=== PATIENT | male | born 1990 | race African-American/Black ===

== ENCOUNTER 2018-10-08 01:12 | Emergency (ER) | payer SELFPAY ==
[2018-10-08 02:45] LABS: Absolute Lymphocytes (CBC) 2.2 K/uL (0.7-4.9); Basophils % 0.7 % (0-1.3); Eosinophils % 5.3 % (0-4.4); Hematocrit 47.6 % (39.6-49.0); Lymphocytes % 41.4 % (15.3-44.8); MPV 12.5 fL (7.6-11.3); Monocytes % 5.7 % (3.3-12.3); RBC Red Blood Cell Count 5.27 M/uL (4.33-5.43)
[2018-10-08 02:55] LABS: BUN Blood Urea Nitrogen 15 mg/dL (7-18); Bicarbonate 26 mmol/L (21-32); Glucose Level 79 mg/dL (74-106); Potassium 3.8 mmol/L (3.5-5.1); Sodium Level 142 mmol/L (136-145); Troponin (Emerg Dept Use Only) < 0.02 ng/mL (0.0-0.045)
[2018-10-08] MEDS ORDERED: KETOROLAC 30 MG/ML INJ ONE (03:26)
[2018-10-08 03:50] LABS: Blood Morphology Comment NOT SEEN (NOT SEEN); Platelet Estimate DECR; Platelets, Giant FEW; Urine White Blood Cell Casts OK
--- NOTE | 2018-10-08 04:44 | ER ---
Nurse's Notes [facility] Name: Ta Alarcon Age: 28 yrs Sex: Male : 1990 Arrival Date: 10/08/2018 Time: 01:14 Bed 6 Private MD: Diagnosis: Chest pain, unspecified Presentation: 10/08 01:22 Presenting complaint: Patient states: that he is having midsternal chest pain that fc radiates to back on and off for the past week. When it comes it lasts a couple of hrs. Nothing specific sets off chest pain. When chest pain comes he also has shortness of breath but no nausea or vomiting. Transition of care: patient was not received from another setting of care. Onset of symptoms was September 30, 2018. Risk Assessment: Do you want to hurt yourself or someone else? Patient reports no desire to harm self or others. Initial Sepsis Screen: Does the patient meet any 2 criteria? No. Patient's initial sepsis screen is negative. Does the patient have a suspected source of infection? No. Patient's initial sepsis screen is negative. Care prior to arrival: None. 01:22 Method Of Arrival: Ambulatory 01:22 Acuity: GABINO 3 fc Historical: - Allergies: 01:34 No Known Allergies; fc - Home Meds: 01:34 None [Active]; fc - PMHx: 01:34 None; fc - PSHx: 01:34 None; fc - Immunization history:: Last tetanus immunization: up to date. - Social history:: Smoking status: Patient uses tobacco products, denies chronic smoking, but will smoke occasionally, Patient/guardian denies using alcohol, street drugs. - Ebola Screening: : Patient negative for fever greater than or equal to 101.5 degrees Fahrenheit, and additional compatible Ebola Virus Disease symptoms Patient denies exposure to infectious person Patient denies travel to an Ebola-affected area in the 21 days before illness onset. Screenin:22 Abuse screen: Denies threats or abuse. Nutritional screening: No deficits noted. fc Tuberculosis screening: No symptoms or risk factors identified. Fall Risk None identified. Assessment: 02:00 General: Appears in no apparent distress. Behavior is calm, cooperative, appropriate ea for age. Pain: Complains of pain in chest Pain does not radiate. Pain began 2-3 days ago. Neuro: Level of Consciousness is awake, alert, obeys commands, Oriented to person, place, time, situation. Cardiovascular: Reports fatigue, shortness of breath, Patient's skin is warm and dry. Respiratory: Airway is patent Respiratory effort is even, unlabored, Respiratory pattern is regular, symmetrical. Derm: Skin is pink, warm \T\ dry. Musculoskeletal: Circulation, motion, and sensation intact. 03:19 Reassessment: Patient and/or family updated on plan of care and expected duration. Pain ea level reassessed. Patient is alert, oriented x 3, equal unlabored respirations, skin warm/dry/pink. 04:52 Reassessment: Patient and/or family updated on plan of care and expected duration. Pain ea level reassessed. Patient is alert, oriented x 3, equal unlabored respirations, skin warm/dry/pink. Discharge instruction given to patient, verbalized the understanding of instruction. Pt left ED ambulatory with mother, pt tolerating well. Vital Signs: 01:22 BP 128 / 80; Pulse 50; Resp 18; Temp 97.6(O); Pulse Ox 99% on R/A; Weight 77.11 kg (R); Height 6 ft. 1 in. (185.42 cm) (R); Pain 6/10; 02:30 BP 134 / 72; Pulse 63; Resp 18; Pulse Ox 99% ; ea 03:15 BP 136 / 83; Pulse 52; Resp 18; Pulse Ox 99% ; ea 04:30 BP 130 / 80; Pulse 55; Resp 19; Temp 97.8; Pulse Ox 99% on R/A; Pain 0/10; ea 01:22 Body Mass Index 22.43 (77.11 kg, 185.42 cm) ED Course: 01:14 Patient arrived in ED. ds1 01:22 Arm band placed on Patient placed in an exam room, on a stretcher. fc 01:22 Patient has correct armband on for positive identification. Bed in low position. Call light in reach. gambling monitor on. Pulse ox on. NIBP on. 01:22 No provider procedures requiring assistance completed. fc 01:23 Chuck Yanes MD is Attending Physician. gs 01:32 Triage completed. fc 01:48 Chelo Peña RN is Primary Nurse. ea 02:00 Patient maintains SpO2 saturation greater than 95% on room air. ea 02:08 X-ray completed. Portable x-ray completed in exam room. Patient tolerated procedure kw well. 02:08 XRAY Chest (1 view) In Process Unspecified. EDMS 02:30 Inserted saline lock: 22 gauge in right antecubital area, using aseptic technique. ea 04:44 Salazar Lemus MD is Referral Physician. gs 04:52 IV discontinued, intact, bleeding controlled, No redness/swelling at site. Pressure ea dressing applied. Administered Medications: 03:13 Drug: TORadol - Ketorolac 15 mg Route: IVP; Site: right antecubital; ea 04:00 Follow up: Response: No adverse reaction; Pain is decreased ea Outcome: 04:44 Discharge ordered by MD. gs 04:53 Discharged to home ambulatory, with family. ea 04:53 Condition: improved 04:53 Discharge instructions given to patient, Instructed on discharge instructions, follow up and referral plans. Demonstrated understanding of instructions, follow-up care. 04:55 Patient left the ED. ea Signatures: Dispatcher [employer] [facility] Betty Shelton RN RN Ely Luna ds1 Nia Villalba Elena, RN RN ea Starr, Gregory, MD MD gs
--- NOTE | 2018-10-08 04:45 | EDPHYS ---
Physician Documentation [facility] Name: Ta Alarcon Age: 28 yrs Sex: Male : 1990 Arrival Date: 10/08/2018 Time: 01:14 Bed 6 Private MD: ED Physician Chuck Yanes HPI: 10/08 03:52 This 28 yrs old Black Male presents to ER via Ambulatory with complaints of Chest Pain gs - Discomfort. 03:52 The patient or guardian reports chest pain that is located primarily in the anterior gs chest wall. Associated signs and symptoms: Pertinent positives:. 03:52 The pain radiates to back. Associated signs and symptoms: Pertinent positives: gs shortness of breath, Pertinent negatives: abdominal pain, diaphoresis, dizziness, syncope. The chest pain is described as a heaviness, sharp. Duration: The patient or guardian reports a single episode, that is now resolved. Modifying factors: The symptoms are alleviated by nothing. the symptoms are aggravated by twisting torso. Severity of pain: At its worst the pain was moderate in the emergency department the pain has resolved. The patient has experienced similar episodes in the past, a few times. onset a week ago. Historical: - Allergies: 01:34 No Known Allergies; fc - Home Meds: 01:34 None [Active]; fc - PMHx: :34 None; fc - PSHx: 01:34 None; fc - Immunization history:: Last tetanus immunization: up to date. - Social history:: Smoking status: Patient uses tobacco products, denies chronic smoking, but will smoke occasionally, Patient/guardian denies using alcohol, street drugs. - Ebola Screening: : Patient negative for fever greater than or equal to 101.5 degrees Fahrenheit, and additional compatible Ebola Virus Disease symptoms Patient denies exposure to infectious person Patient denies travel to an Ebola-affected area in the 21 days before illness onset. ROS: 03:52 All other systems are negative. gs Exam: 03:52 Head/Face: Normocephalic, atraumatic. Eyes: Pupils equal round and reactive to light, gs extra-ocular motions intact. Lids and lashes normal. Conjunctiva and sclera are non-icteric and not injected. Cornea within normal limits. Periorbital areas with no swelling, redness, or edema. ENT: Nares patent. No nasal discharge, no septal abnormalities noted. Tympanic membranes are normal and external auditory canals are clear. Oropharynx with no redness, swelling, or masses, exudates, or evidence of obstruction, uvula midline. Mucous membranes moist. Neck: Trachea midline, no thyromegaly or masses palpated, and no cervical lymphadenopathy. Supple, full range of motion without nuchal rigidity, or vertebral point tenderness. No Meningismus. Chest/axilla: Normal chest wall appearance and motion. Nontender with no deformity. No lesions are appreciated. Cardiovascular: Regular rate and rhythm with a normal S1 and S2. No gallops, murmurs, or rubs. Normal PMI, no JVD. No pulse deficits. Respiratory: Lungs have equal breath sounds bilaterally, clear to auscultation and percussion. No rales, rhonchi or wheezes noted. No increased work of breathing, no retractions or nasal flaring. Abdomen/GI: Soft, non-tender, with normal bowel sounds. No distension or tympany. No guarding or rebound. No evidence of tenderness throughout. Back: No spinal tenderness. No costovertebral tenderness. Full range of motion. Skin: Warm, dry with normal turgor. Normal color with no rashes, no lesions, and no evidence of cellulitis. MS/ Extremity: Pulses equal, no cyanosis. Neurovascular intact. Full, normal range of motion. Neuro: Awake and alert, GCS 15, oriented to person, place, time, and situation. Cranial nerves II-XII grossly intact. Motor strength 5/5 in all extremities. Sensory grossly intact. Cerebellar exam normal. Normal gait. 03:52 Constitutional: The patient appears alert, awake. 04:42 ECG was reviewed by the Attending Physician. Vital Signs: 01:22 BP 128 / 80; Pulse 50; Resp 18; Temp 97.6(O); Pulse Ox 99% on R/A; Weight 77.11 kg (R); fc Height 6 ft. 1 in. (185.42 cm) (R); Pain 6/10; 02:30 BP 134 / 72; Pulse 63; Resp 18; Pulse Ox 99% ; ea 03:15 BP 136 / 83; Pulse 52; Resp 18; Pulse Ox 99% ; ea 04:30 BP 130 / 80; Pulse 55; Resp 19; Temp 97.8; Pulse Ox 99% on R/A; Pain 0/10; ea 01:22 Body Mass Index 22.43 (77.11 kg, 185.42 cm) fc MDM: 01:56 Patient medically screened. 03:52 Differential diagnosis: abnormal EKG, acute myocardial infarction, coronary artery gs disease chest wall pain. HEART Score: History: Slightly Suspicious (0), ECG: Significant ST-deviation (2), Age: < or = 45 years (0), Risk Factors: No Risk Factors Known (0), Troponin: < or = 1 x Normal Limit (0). Data reviewed: vital signs, nurses notes, lab test result(s), EKG, radiologic studies. 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 Response to treatment: the patient's symptoms have resolved after treatment, the patient's pain is gone, the patient's condition has returned to base line. 04:44 Counseling: I had a detailed discussion with the patient and/or guardian regarding: the gs presence of at least one elevated blood pressure reading (>120/80) during this emergency department visit. Special discussion: Based on the patient's history, exam, and Dx evaluation, there is no indication for emergent intervention or inpatient Tx. It is understood by the patient/guardian that if the Sx's persist or worsen they need to return immediately for re-evaluation. I have referred the patient to see his PCP for further evaluation of high blood pressure. 10/08 01:57 Order name: Basic Metabolic Panel; Complete Time: 02:55 10/08 01:57 Order name: CBC with Diff; Complete Time: 04:23 10/08 01:57 Order name: Troponin (emerg Dept Use Only); Complete Time: 02:55 10/08 01:57 Order name: XRAY Chest (1 view) 10/08 02:50 Order name: CBC Smear Scan; Complete Time: 04:23 EDMS 10/08 01:57 Order name: EKG; Complete Time: 02:00 10/08 01:57 Order name: Cardiac monitoring; Complete Time: 02:06 10/08 01:57 Order name: EKG - Nurse/Tech; Complete Time: 02:06 10/08 01:57 Order name: IV Saline Lock; Complete Time: : 10/08 01:57 Order name: Labs collected and sent; Complete Time: : 10/08 01:57 Order name: O2 Per Protocol; Complete Time: 02:06 10/08 01:57 Order name: O2 Sat Monitoring; Complete Time: 02:06 EC:42 Rate is 46 beats/min. Rhythm is regular. ND interval is normal. QRS interval is normal. QT interval is normal. T waves are Inverted. ST Segment is depressed in leads III, aVF. Clinical impression: NSR w/ Non-specific ST/T Changes. Interpreted by me. Administered Medications: 03:13 Drug: TORadol - Ketorolac 15 mg Route: IVP; Site: right antecubital; ea 04:00 Follow up: Response: No adverse reaction; Pain is decreased ea Disposition: 10/08/18 04:44 Discharged to Home. Impression: Chest pain, unspecified. - Condition is Stable. - Discharge Instructions: Nonspecific Chest Pain, Managing Your Hypertension. - Medication Reconciliation Form, Thank You Letter, Antibiotic Education, Prescription Opioid Use form. - Follow up: Salazar Lemus MD; When: 1 - 2 days; Reason: Re-evaluation by your physician. Signatures: Dispatcher [employer] Betty Hicks, RN Chelo Guerrero RN RN ea Starr, Gregory, MD MD Corrections: (The following items were deleted from the chart) 04:55 04:44 10/08/2018 04:44 Discharged to Home. Impression: Chest pain, unspecified. ea Condition is Stable. Forms are Medication Reconciliation Form, Thank You Letter, Antibiotic Education, Prescription Opioid Use. Follow up: Salazar Lemus; When: 1 - 2 days; Reason: Re-evaluation by your physician.
[2018-10-08 05:02] VITALS: O2SAT 99
[2018-10-08 05:06] VITALS: BP 130/80; TEMP 97.8
--- NOTE | 2018-10-08 07:54 | EKG ---
Test Date: 2018-10-08 Test Time: 01:42:17 [employer]visor [employer]: [id number] MEASUREMENT RESULTS: Intervals: Rate: 46 VA: 184 QRSD: 98 QT: 440 QTc: 385 [place]: P: 69 VA: 184 QRS: 223 T: -12 INTERPRETIVE STATEMENTS: Marked sinus bradycardia Right superior axis deviation Possible Right ventricular hypertrophy Abnormal QRS-T angle, consider primary T wave abnormality Abnormal ECG No previous ECG available for comparison Electronically Signed On 10-08-18 07:53:40 CDT by Salazar Lemus
--- NOTE | 2018-10-08 08:12 | RAD REPORT ---
EXAM DESCRIPTION: RAD - Chest Single View - 10/08/2018 2:10 am CLINICAL HISTORY: CHEST PAIN Chest pain. COMPARISON: CHEST PA AND LAT 2 VIEW dated 08/11/2009 FINDINGS: Portable technique limits examination quality. The lungs are grossly clear. The heart is normal in size. No displaced fractures. IMPRESSION: No acute intrathoracic process suspected.
== END 2018-10-08 04:55 | disposition home or self-care (01) ==
LOC: ER 01:12
DX: R07.9 Chest pain, unspecified (principal); R06.02 Shortness of breath; Z72.0 Tobacco use
CPT/HCPCS: 36415; 71045; 80048; 84484; 85025; 93005; 96374; 99285

== ENCOUNTER 2019-04-21 15:24 | Emergency (ER) | payer SELFPAY ==
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
[2019-04-21 17:03] VITALS: BP 122/78; TEMP 97.6; O2SAT 99
== END 2019-04-21 16:28 | disposition home or self-care (01) ==
LOC: ER 15:24
DX: M62.830 Muscle spasm of back (principal); V49.40XA Driver injured in collision with unspecified motor vehicles in traffic accident, initial encounter
CPT/HCPCS: 99282

== ENCOUNTER 2019-11-06 02:01 | Emergency (ER) | payer SELFPAY ==
--- NOTE | 2019-11-06 02:59 | EDPHYS ---
Physician Documentation [facility] Name: Ta Alarcon Age: 29 yrs Sex: Male : 1990 Arrival Date: 11/06/2019 Time: 02:04 Bed 18 Private MD: ED Physician Hussein Rangel HPI: 11/05 02:49 This 29 yrs old Black Male presents to ER via Ambulatory with complaints of Shortness abhilash Of Breath. 02:49 The patient has shortness of breath at rest, with light activity. Onset: The abhilash symptoms/episode began/occurred 5 day(s) ago. Duration: The symptoms are intermittent, with episodes lasting minutes at a time. The patient's shortness of breath has no apparent modifying factors. Associated signs and symptoms: The patient has no apparent associated signs or symptoms. Severity of symptoms: At their worst the symptoms were mild in the emergency department the symptoms are unchanged. The patient has not experienced similar symptoms in the past. Historical: - Allergies: 02:20 No Known Allergies; mt2 - PMHx: 02:20 Anxiety; mt2 - PSHx: 02:20 None; mt2 - Immunization history:: Adult Immunizations up to date. - Social history:: Smoking status: Patient reports the use of cigarette tobacco products, denies chronic smoking, but will smoke occasionally, Patient/guardian denies using alcohol, street drugs. - Family history:: not pertinent. ROS: 02:49 Constitutional: Negative for fever, chills, and weight loss, Eyes: Negative for injury, abhilash pain, redness, and discharge, ENT: Negative for injury, pain, and discharge, Neck: Negative for injury, pain, and swelling, Cardiovascular: Negative for chest pain, palpitations, and edema, Abdomen/GI: Negative for abdominal pain, nausea, vomiting, diarrhea, and constipation, Back: Negative for injury and pain, : Negative for injury, bleeding, discharge, and swelling, MS/Extremity: Negative for injury and deformity, Skin: Negative for injury, rash, and discoloration, Neuro: Negative for headache, weakness, numbness, tingling, and seizure, Psych: Negative for depression, anxiety, suicide ideation, homicidal ideation, and hallucinations, Allergy/Immunology: Negative for hives, rash, and allergies, Endocrine: Negative for neck swelling, polydipsia, polyuria, polyphagia, and marked weight changes, Hematologic/Lymphatic: Negative for swollen nodes, abnormal bleeding, and unusual bruising. 02:49 Respiratory: Positive for Exam: 02:49 Constitutional: This is a well developed, well nourished patient who is awake, alert, abhilash and in no acute distress. Head/Face: Normocephalic, atraumatic. Eyes: Pupils equal round and reactive to light, extra-ocular motions intact. Lids and lashes normal. Conjunctiva and sclera are non-icteric and not injected. Cornea within normal limits. Periorbital areas with no swelling, redness, or edema. ENT: Nares patent. No nasal discharge, no septal abnormalities noted. Tympanic membranes are normal and external auditory canals are clear. Oropharynx with no redness, swelling, or masses, exudates, or evidence of obstruction, uvula midline. Mucous membranes moist. Neck: Trachea midline, no thyromegaly or masses palpated, and no cervical lymphadenopathy. Supple, full range of motion without nuchal rigidity, or vertebral point tenderness. No Meningismus. Chest/axilla: Normal chest wall appearance and motion. Nontender with no deformity. No lesions are appreciated. Cardiovascular: Regular rate and rhythm with a normal S1 and S2. No gallops, murmurs, or rubs. Normal PMI, no JVD. No pulse deficits. Respiratory: Lungs have equal breath sounds bilaterally, clear to auscultation and percussion. No rales, rhonchi or wheezes noted. No increased work of breathing, no retractions or nasal flaring. Abdomen/GI: Soft, non-tender, with normal bowel sounds. No distension or tympany. No guarding or rebound. No evidence of tenderness throughout. Back: No spinal tenderness. No costovertebral tenderness. Full range of motion. Skin: Warm, dry with normal turgor. Normal color with no rashes, no lesions, and no evidence of cellulitis. MS/ Extremity: Pulses equal, no cyanosis. Neurovascular intact. Full, normal range of motion. Neuro: Awake and alert, GCS 15, oriented to person, place, time, and situation. Cranial nerves II-XII grossly intact. Motor strength 5/5 in all extremities. Sensory grossly intact. Cerebellar exam normal. Normal gait. Psych: Awake, alert, with orientation to person, place and time. Behavior, mood, and affect are within normal limits. 02:49 Musculoskeletal/extremity: Extremities: all appear grossly normal, with no appreciated pain with palpation, ROM: full active range of motion, full passive range of motion, Pulses: Sensation intact. Compartment Syndrome exam of affected extremity: is normal. Weight bearing: able to fully bear weight, DVT Exam: No signs of deep vein thrombosis. no pain, no swelling, no tenderness, negative Homans' sign noted on exam, no appreciated bluish discoloration, no erythema, no increased warmth. Vital Signs: 02:15 BP 141 / 73; Pulse 77; Resp 16; Temp 98.0(O); Pulse Ox 100% on R/A; Weight 79.38 kg; mt2 Pain 0/10; 02:22 BP 141 / 73; Pulse 77; Resp 16; Temp 98.0(O); Pulse Ox 100% on R/A; Weight 79.38 kg; mt2 Pain 0/10; 03:10 BP 125 / 68; Pulse 69; Resp 16; Pulse Ox 100% on R/A; Pain 0/10; mt2 [place] Coma Score: 03:10 Eye Response: spontaneous(4). Verbal Response: oriented(5). Motor Response: obeys mt2 commands(6). Total: 15. MDM: 02:19 Patient medically screened. abhilash 02:55 Differential diagnosis: Anxiety Reaction CHF exacerbation, pulmonary edema, reactive abhilash airway disease. Antibiotic administration: Not indicated. The patient's Wells Deep Vein Thrombosis Score was calculated as follows: Total Score: 0-2 Pts- Low Risk. The patient's pulmonary embolism risk score was calculated as follows: Total Score: 0-2 points. This patient was found to be at low risk for a pulmonary embolism by using the Well's assessment criteria. Immunization status:. Data reviewed: vital signs, nurses notes, radiologic studies, plain films. Data interpreted: vision care associate: rate is 77 beats/min, rhythm is regular, Pulse oximetry: on room air. 11/05 02:39 Order name: Chest Single View XRAY fc Administered Medications: No medications were administered Disposition: 11/06/19 02:58 Discharged to Home. Impression: Cough, Bronchitis and pneumonitis due to chemicals, gases, fumes and vapors, Vomiting. - Condition is Stable. - Discharge Instructions: Acute Bronchitis, Adult, Cool Mist Vaporizer, Acute Bronchitis, [id number], Cough, Adult. - Prescriptions for Zofran 4 mg Oral Tablet - take 1 tablet by ORAL route every 12 hours As needed; 14 tablet. Medrol (Adolph) 4 mg Oral Tablets, Dose Pack - take 1 tablet by ORAL route as directed - follow package instructions; 1 packet. Bromfed DM 2- 30-10 mg/5 mL Oral syrup - take 10 milliliter by ORAL route every 6 hours; 150 milliliter. - Medication Reconciliation Form, Thank You Letter, Antibiotic Education, Prescription Opioid Use form. - Follow up: Private Physician; When: 2 - 3 days; Reason: Recheck today's complaints, Continuance of care, Re-evaluation by your physician. Follow up: Johan Tsai MD; When: 2 - 3 days; Reason: Recheck today's complaints, Re-evaluation by your physician. - Problem is new. - Symptoms have improved. Signatures: Dispatcher [employer] EDHussein Velez MD MD cha Toscano, Marlene RN RN mt2 Corrections: (The following items were deleted from the chart) 02:59 02:58 11/06/2019 02:58 Discharged to Home. Impression: Cough; Bronchitis and abhilash pneumonitis due to chemicals, gases, fumes and vapors. Condition is Stable. Forms are Medication Reconciliation Form, Thank You Letter, Antibiotic Education, Prescription Opioid Use. Follow up: Private Physician; When: 2 - 3 days; Reason: Recheck today's complaints, Continuance of care, Re-evaluation by your physician. Follow up: Johan Tsai; When: 2 - 3 days; Reason: Recheck today's complaints, Re-evaluation by your physician. Problem is new. Symptoms have improved. abhilash 03:13 02:59 11/06/2019 02:58 Discharged to Home. Impression: Cough; Bronchitis and mt2 pneumonitis due to chemicals, gases, fumes and vapors; Vomiting. Condition is Stable. Discharge Instructions: Acute Bronchitis, Adult, Cool Mist Vaporizer, Acute Bronchitis, [id number], Cough, Adult. Prescriptions for Zofran 4 mg Oral Tablet - take 1 tablet by ORAL route every 12 hours As needed; 14 tablet, Medrol (Adolph) 4 mg Oral Tablets, Dose Pack - take 1 tablet by ORAL route as directed - follow package instructions; 1 packet. and Forms are Medication Reconciliation Form, Thank You Letter, Antibiotic Education, Prescription Opioid Use. Follow up: Private Physician; When: 2 - 3 days; Reason: Recheck today's complaints, Continuance of care, Re-evaluation by your physician. Follow up: Johan Tsai; When: 2 - 3 days; Reason: Recheck today's complaints, Re-evaluation by your physician. Problem is new. Symptoms have improved. abhilash
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
[2019-11-06 03:51] VITALS: BP 141/73; TEMP 98; O2SAT 100
--- NOTE | 2019-11-06 09:47 | RAD REPORT ---
EXAM DESCRIPTION: RAD - Chest Single View - 11/06/2019 3:02 am CLINICAL HISTORY: SOB COMPARISON: Portable September 2018 TECHNIQUE: AP portable chest image was obtained 11/06/2019 3:02 am . FINDINGS: Lungs are clear. Heart and vasculature are normal. No measurable pleural effusion and no p neumothorax. No acute bony abnormality seen. No acute aortic findings suspected. IMPRESSION: No acute cardiopulmonary process. No significant change from comparison.
== END 2019-11-06 03:13 | disposition home or self-care (01) ==
LOC: ER 02:01
DX: J68.0 Bronchitis and pneumonitis due to chemicals, gases, fumes and vapors (principal); R11.10 Vomiting, unspecified; Z72.0 Tobacco use
CPT/HCPCS: 71045; 99283

== ENCOUNTER 2020-08-30 09:41 | Emergency (ER) | payer SELFPAY ==
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
--- NOTE | 2020-08-30 11:30 | ER ---
Nurse's Notes [facility] Name: Ta Alarcon Age: 30 yrs Sex: Male : 1990 Arrival Date: 08/30/2020 Time: 09:46 Bed 18 Private MD: Diagnosis: Pain in right knee Presentation: 08/30 10:09 Chief complaint: Patient states: I was at work, and walked down a wooden staircase and tw2 the step broke in half. I twisted right knee. Coronavirus screen: At this time, the client does not indicate any symptoms associated with coronavirus-19. Ebola Screen: Patient denies travel to an Ebola-affected area in the 21 days before illness onset. Initial Sepsis Screen: Does the patient meet any 2 criteria? No. Patient's initial sepsis screen is negative. Does the patient have a suspected source of infection? No. Patient's initial sepsis screen is negative. Risk Assessment: Do you want to hurt yourself or someone else? Patient reports no desire to harm self or others. Note provider TRAVIS Toure in triage room at this time. Onset of symptoms was August 30, 2020. 10:09 Method Of Arrival: Ambulatory tw2 10:09 Acuity: GABINO 4 tw2 Triage Assessment: 10:11 General: Appears in no apparent distress. slender, well groomed, Behavior is calm, tw2 cooperative, appropriate for age. Pain: Complains of pain in RIGHT knee. Musculoskeletal: Range of motion: intact in all extremities. Injury Description: twisted knee. Historical: - Allergies: 10:12 No Known Allergies; tw2 - Home Meds: 10:12 None [Active]; tw2 - PMHx: 10:12 Anxiety; tw2 - PSHx: 10:12 None; tw2 - Immunization history:: Adult Immunizations. - Social history:: Smoking status: . Screenin:41 Abuse screen: Denies threats or abuse. Denies injuries from another. Nutritional tr6 screening: No deficits noted. Tuberculosis screening: No symptoms or risk factors identified. Fall Risk Fall in past 12 months (25 points). Assessment: 10:40 General: Appears in no apparent distress. Behavior is calm, cooperative, appropriate tr6 for age. Pain: Complains of pain in right knee. Neuro: No deficits noted. Cardiovascular: No deficits noted. Respiratory: No deficits noted. GI: No deficits noted. : No deficits noted. EENT: No deficits noted. Derm: No deficits noted. Musculoskeletal: Reports pain in right knee. 10:56 Reassessment: bedside xray. tr6 11:36 Reassessment: lesli wrap applied to pts right knee. tr6 Vital Signs: 10:09 Pulse 65; Resp 17; Temp 97.9; Pulse Ox 100% on R/A; tw2 10:12 BP 111 / 74; Pulse 65; Weight 80.74 kg (R); Height 6 ft. 1 in. (185.42 cm); tw2 10:42 BP 136 / 72; Pulse 73; Resp 18; Pulse Ox 100% ; tr6 11:40 BP 159 / 77; Pulse 51; Resp 18; Pulse Ox 100% ; tr6 10:12 Body Mass Index 23.48 (80.74 kg, 185.42 cm) tw2 ED Course: 09:46 Patient arrived in ED. am2 10:11 Triage completed. tw2 10:11 Michell Blancas FNP-C [facility] kb 10:11 Brenden Holley MD is Attending Physician. kb 10:11 Arm band placed on. tw2 10:41 Patient has correct armband on for positive identification. Fall risk band placed. Bed tr6 in low position. Call light in reach. Side rails up X 1. 10:41 No provider procedures requiring assistance completed. tr6 11:08 Knee Right 3 View XRAY In Process Unspecified. EDMS Administered Medications: No medications were administered Outcome: 11:29 Discharge ordered by . kb 11:41 Discharged to home ambulatory. tr6 11:41 Condition: good 11:41 Discharge instructions given to patient, Instructed on discharge instructions, follow up and referral plans. medication usage, Demonstrated understanding of instructions, follow-up care, medications, Prescriptions given X 1. 11:42 Patient left the ED. tr6 Signatures: Dispatcher [employer] EDMS Michell Blancas FNP-C FNP-Ckb Wise, Tara RN RN tw2 Blessing Cabrera am2 Alma Pizarro RN RN tr6
--- NOTE | 2020-08-30 11:30 | EDPHYS ---
Physician Documentation [facility] Name: Ta Alarcon Age: 30 yrs Sex: Male : 1990 Arrival Date: 08/30/2020 Time: 09:46 Bed 18 Private MD: ED Physician Brenden Holley HPI: 08/30 10:15 This 30 yrs old Black Male presents to ER via Ambulatory with complaints of Knee kb Injury, Knee Pain. 10:15 The patient presents with pain, tenderness. The complaints affect the right knee. kb Context: The problem was sustained at work, resulted from twisting of the extremity, the patient can fully bear weight, the patient is able to ambulate. Onset: The symptoms/episode began/occurred just prior to arrival. Modifying factors: The symptoms are alleviated by nothing. the symptoms are aggravated by movement. Associated signs and symptoms: The patient has no apparent associated signs or symptoms. Treatment prior to arrival includes: no previous treatment. Severity of symptoms: At their worst the symptoms were mild, moderate, in the emergency department the symptoms are unchanged. The patient has not experienced similar symptoms in the past. The patient has not recently seen a physician. Pt reports he was walking down wooden steps when one broke causing him to twist his knee. c/o pain to right knee only. No other injuries/pain reported. Historical: - Allergies: 10:12 No Known Allergies; tw2 - Home Meds: 10:12 None [Active]; tw2 - PMHx: 10:12 Anxiety; tw2 - PSHx: 10:12 None; tw2 - Immunization history:: Adult Immunizations. - Social history:: Smoking status: . ROS: 10:13 Constitutional: Negative for fever, chills, and weight loss, Back: Negative for injury kb and pain, Skin: Negative for injury, rash, and discoloration. 10:13 MS/extremity: Positive for pain, tenderness, of the right knee. 10:13 Neuro: Negative for numbness, tingling. Exam: 10:13 Constitutional: This is a well developed, well nourished patient who is awake, alert, kb and in no acute distress. Head/Face: Normocephalic, atraumatic. ENT: Moist Mucous membranes Respiratory: Respirations even and unlabored. No increased work of breathing, no retractions or nasal flaring. Skin: Warm, dry with normal turgor. Normal color. Neuro: Awake and alert, GCS 15, oriented to person, place, time, and situation. Moves all extremities. Normal gait. 10:13 Musculoskeletal/extremity: Extremities: grossly normal except: noted in the right knee: pain, tenderness, ROM: intact in all extremities, Circulation is intact in all extremities. Sensation intact. Weight bearing: able to fully bear weight. Vital Signs: 10:09 Pulse 65; Resp 17; Temp 97.9; Pulse Ox 100% on R/A; tw2 10:12 BP 111 / 74; Pulse 65; Weight 80.74 kg (R); Height 6 ft. 1 in. (185.42 cm); tw2 10:42 BP 136 / 72; Pulse 73; Resp 18; Pulse Ox 100% ; tr6 11:40 BP 159 / 77; Pulse 51; Resp 18; Pulse Ox 100% ; tr6 10:12 Body Mass Index 23.48 (80.74 kg, 185.42 cm) tw2 MDM: 10:11 Patient medically screened. kb 10:13 Data reviewed: vital signs, nurses notes. Data interpreted: Pulse oximetry: on room air kb is 100 %. Interpretation: normal. 11:28 Counseling: I had a detailed discussion with the patient and/or guardian regarding: the kb historical points, exam findings, and any diagnostic results supporting the discharge/admit diagnosis, radiology results, the need for outpatient follow up, a orthopedic surgeon, to return to the emergency department if symptoms worsen or persist or if there are any questions or concerns that arise at home. 08/30 10:12 Order name: Knee Right 3 View XRAY; Complete Time: 11:28 kb 08/30 11:28 Order name: Gilbert Wrap; Complete Time: 11:32 kb Administered Medications: No medications were administered Disposition: 17:10 Co-signature as Attending Physician, Brenden Holley MD. rn Disposition: 08/30/20 11:29 Discharged to Home. Impression: Pain in right knee. - Condition is Stable. - Discharge Instructions: Musculoskeletal Pain, Knee Pain, [id number]. - Prescriptions for Ibuprofen 800 mg Oral Tablet - take 1 tablet by ORAL route every 8 hours As needed take with food; 30 tablet. - Medication Reconciliation Form, Thank You Letter, Antibiotic Education, Prescription Opioid Use form. - Work release form (08/30/20 11:48). bd - Follow up: Emergency Department; When: As needed; Reason: Worsening of condition. Follow up: Private Physician; When: 2 - 3 days; Reason: Recheck today's complaints, Continuance of care, Re-evaluation by your physician. Signatures: Dispatcher [employer] EDMS Michell Blancas, ELECTRICAL AND INSTRUMENT MECHANIC-C ELECTRICAL AND INSTRUMENT MECHANIC-Ckb Brenden Holley MD MD rn Wise, Tara, RN RN 2 Alma Pizarro RN RN tr6 Vannessa Rome Corrections: (The following items were deleted from the chart) 11:42 11:29 08/30/2020 11:29 Discharged to Home. Impression: Pain in right knee. Condition is tr6 Stable. Forms are Medication Reconciliation Form, Thank You Letter, Antibiotic Education, Prescription Opioid Use. Follow up: Emergency Department; When: As needed; Reason: Worsening of condition. Follow up: Private Physician; When: 2 - 3 days; Reason: Recheck today's complaints, Continuance of care, Re-evaluation by your physician. kb
[2020-08-30 11:50] VITALS: TEMP 97.9; O2SAT 100
[2020-08-30 11:55] VITALS: BP 159/77
== END 2020-08-30 11:42 | disposition home or self-care (01) ==
LOC: ER 09:41
DX: M25.561 Pain in right knee (principal)
CPT/HCPCS: 99283

== ENCOUNTER 2020-11-24 10:22 | Emergency (ER) | payer BC ==
--- NOTE | 2020-11-24 13:46 | EDPHYS ---
Physician Documentation [facility] Name: Ta Alarcon Age: 30 yrs Sex: Male : 1990 Arrival Date: 11/24/2020 Time: 10:28 Bed DIS2 Private MD: ED Physician Joe Granados HPI: 11/24 16:19 This 30 yrs old Black Male presents to ER via Ambulatory with complaints of Covid Test, kdr Headache. 16:19 The patient stated that he had recently been exposed to Covid and that today he woke kdr with a very slight headache. The patient is completely nontoxic appearing and has not been unstable in any way. Onset: The symptoms/episode began/occurred suddenly, this morning. Severity of symptoms: At their worst the symptoms were very mild in the emergency department the symptoms are unchanged. The patient has not experienced similar symptoms in the past. The patient has not recently seen a physician. Historical: - Allergies: 11:03 No Known Allergies; ca1 - Home Meds: 11:03 None [Active]; ca1 - PMHx: 11:03 Anxiety; ca1 - PSHx: 11:03 None; ca1 - Immunization history:: Client reports having NOT received the Covid vaccine. - Social history:: Smoking status: Patient denies any tobacco usage or history of. ROS: 16:19 Constitutional: Negative for fever, chills, and weight loss, Eyes: Negative for injury, kdr pain, redness, and discharge, ENT: Negative for injury, pain, and discharge, Neck: Negative for injury, pain, and swelling, Cardiovascular: Negative for chest pain, palpitations, and edema, Respiratory: Negative for shortness of breath, cough, wheezing, and pleuritic chest pain, Abdomen/GI: Negative for abdominal pain, nausea, vomiting, diarrhea, and constipation, Back: Negative for injury and pain, : Negative for injury, bleeding, discharge, and swelling, MS/Extremity: Negative for injury and deformity, Skin: Negative for injury, rash, and discoloration, Psych: Negative for depression, anxiety, suicide ideation, homicidal ideation, and hallucinations, Allergy/Immunology: Negative for hives, rash, and allergies, Endocrine: Negative for neck swelling, polydipsia, polyuria, polyphagia, and marked weight changes, Hematologic/Lymphatic: Negative for swollen nodes, abnormal bleeding, and unusual bruising. 16:19 Neuro: Positive for headache, Very minor headache. Exam: 16:19 Constitutional: This is a well developed, well nourished patient who is awake, alert, kdr and in no acute distress. Head/Face: Normocephalic, atraumatic. Eyes: Pupils equal round and reactive to light, extra-ocular motions intact. Lids and lashes normal. Conjunctiva and sclera are non-icteric and not injected. Cornea within normal limits. Periorbital areas with no swelling, redness, or edema. Neck: Trachea midline, no thyromegaly or masses palpated, and no cervical lymphadenopathy. Supple, full range of motion without nuchal rigidity, or vertebral point tenderness. No Meningismus. Chest/axilla: Normal chest wall appearance and motion. Nontender with no deformity. No lesions are appreciated. Cardiovascular: Regular rate and rhythm with a normal S1 and S2. No gallops, murmurs, or rubs. Normal PMI, no JVD. No pulse deficits. Respiratory: Lungs have equal breath sounds bilaterally, clear to auscultation and percussion. No rales, rhonchi or wheezes noted. No increased work of breathing, no retractions or nasal flaring. Abdomen/GI: Soft, non-tender, with normal bowel sounds. No distension or tympany. No guarding or rebound. No evidence of tenderness throughout. Back: No spinal tenderness. No costovertebral tenderness. Full range of motion. Skin: Warm, dry with normal turgor. Normal color with no rashes, no lesions, and no evidence of cellulitis. MS/ Extremity: Pulses equal, no cyanosis. Neurovascular intact. Full, normal range of motion. Neuro: Awake and alert, GCS 15, oriented to person, place, time, and situation. Cranial nerves II-XII grossly intact. Motor strength 5/5 in all extremities. Sensory grossly intact. Cerebellar exam normal. Normal gait. Psych: Awake, alert, with orientation to person, place and time. Behavior, mood, and affect are within normal limits. Vital Signs: 11:01 Pulse 62; Resp 18 S; Temp 98.2; Pulse Ox 100% on R/A; Weight 81.65 kg (R); Height 6 ft. ca1 1 in. (185.42 cm); Pain 0/10; 11:03 BP 113 / 61; ca1 11:01 Body Mass Index 23.75 (81.65 kg, 185.42 cm) ca1 MDM: 13:45 Patient medically screened. kdr 16:19 Data reviewed: vital signs, nurses notes, lab test result(s), radiologic studies. kdr Counseling: I had a detailed discussion with the patient and/or guardian regarding: the historical points, exam findings, and any diagnostic results supporting the discharge/admit diagnosis, lab results, radiology results, the need for outpatient follow up. 11/24 11:00 Order name: Flu; Complete Time: 13:40 ca1 11/24 12:32 Order name: SARS-COV-2 RT PCR; Complete Time: 13:40 EDMS Administered Medications: No medications were administered Disposition Summary: 11/24/20 13:45 Discharge Ordered Location: Home kdr Problem: new kdr Symptoms: are unchanged kdr Condition: Stable kdr Diagnosis - Viral infection, unspecified kdr - Headache kdr Followup: kdr - With: Private Physician - When: 2 - 3 days - Reason: If symptoms return, Further diagnostic work-up, Recheck today's complaints, Continuance of care, Re-evaluation by your physician Discharge Instructions: - Discharge Summary Sheet kdr - General Headache Without Cause kdr - General Headache Without Cause, [id number] kdr - Viral Illness, Adult kdr Forms: - Medication Reconciliation Form kdr - Thank You Letter kdr Signatures: Dispatcher [employer] Joe Waterman MD MD kdr Diana Laguna RN RN ca1 Corrections: (The following items were deleted from the chart) 11:23 11:01 CORONAVIRUS+MR.LAB.FRACISCOZ ordered. EDTX EDTX
--- NOTE | 2020-11-24 13:46 | ER ---
Nurse's Notes [facility] Name: Ta Al[facility] Age: 30 yrs Sex: Male : 1990 Arrival Date: 11/24/2020 Time: 10:28 Bed DIS2 Private MD: Diagnosis: Viral infection, unspecified;Headache Presentation: 11/24 11:01 Chief complaint: Patient states: Headache today. Exposure to Covid. Coronavirus screen: ca1 Client denies travel out of the [place] in the last 14 days. headache, Client presents with at least one sign or symptom that may indicate coronavirus-19. Standard/surgical mask placed on the client. Provider contacted for isolation considerations. Ebola Screen: Patient negative for fever greater than or equal to 101.5 degrees Fahrenheit, and additional compatible Ebola Virus Disease symptoms Patient denies exposure to infectious person. Patient denies travel to an Ebola-affected area in the 21 days before illness onset. No symptoms or risks identified at this time. Initial Sepsis Screen: Does the patient meet any 2 criteria? No. Patient's initial sepsis screen is negative. Does the patient have a suspected source of infection? No. Patient's initial sepsis screen is negative. Risk Assessment: Do you want to hurt yourself or someone else? Patient reports no desire to harm self or others. Onset of symptoms was November 24, 2020. 11:01 Method Of Arrival: Ambulatory ca1 11:01 Acuity: GABINO 4 ca1 Historical: - Allergies: 11:03 No Known Allergies; ca1 - Home Meds: 11:03 None [Active]; ca1 - PMHx: 11:03 Anxiety; ca1 - PSHx: 11:03 None; ca1 - Immunization history:: Client reports having NOT received the Covid vaccine. - Social history:: Smoking status: Patient denies any tobacco usage or history of. Screenin:09 Abuse screen: Denies threats or abuse. Denies injuries from another. Nutritional ss screening: No deficits noted. Tuberculosis screening: Never had TB. Fall Risk None identified. Assessment: 12:54 General: Appears in no apparent distress. comfortable, Behavior is calm, cooperative. ss Pain: Denies pain. Neuro: Level of Consciousness is awake, alert, obeys commands, Oriented to person, place, time, situation, Blocking Machine Operator are equal bilaterally. Neuro: Reports headache. Cardiovascular: Capillary refill < 3 seconds is brisk in bilateral fingers Patient's skin is warm and dry. Respiratory: Respiratory effort is even, unlabored, Respiratory pattern is regular, symmetrical. GI: No signs and/or symptoms were reported involving the gastrointestinal system. EENT: Nares are clear. Derm: Skin is intact, is healthy with good turgor, Skin is dry, Skin is pink, warm \T\ dry. normal. Musculoskeletal: Circulation, motion, and sensation intact. Range of motion: intact in all extremities, Swelling absent. 13:09 Reassessment: Patient appears in no apparent distress at this time. Patient and/or ss family updated on plan of care and expected duration. Pain level reassessed. Vital Signs: 11:01 Pulse 62; Resp 18 S; Temp 98.2; Pulse Ox 100% on R/A; Weight 81.65 kg (R); Height 6 ft. ca1 1 in. (185.42 cm); Pain 0/10; 11:03 BP 113 / 61; ca1 11:01 Body Mass Index 23.75 (81.65 kg, 185.42 cm) ca1 ED Course: 10:28 Patient arrived in ED. mr 11:02 Triage completed. ca1 11:03 Arm band placed on right wrist. ca1 12:54 No provider procedures requiring assistance completed. 13:09 Lora Orellana, RN is Primary Nurse. ss 13:09 Patient has correct armband on for positive identification. Call light in reach. ss 13:37 Joe Granados MD is Attending Physician. kdr 14:00 Patient did not have IV access during this emergency room visit. ss Administered Medications: No medications were administered Outcome: 13:45 Discharge ordered by . kdr 14:00 Discharged to home ambulatory. ss 14:00 Condition: good 14:00 Discharge instructions given to patient, Instructed on discharge instructions, follow up and referral plans. Demonstrated understanding of instructions, follow-up care. 14:00 Patient left the ED. Signatures: Joe Granados MD MD kdr Rivera, Mary mr Lora Orellana, GALLO RN Diana Laguna RN RN ca1
[2020-11-24 14:06] VITALS: TEMP 98.2; O2SAT 100
[2020-11-24 14:07] VITALS: BP 113/61
== END 2020-11-24 14:00 | disposition home or self-care (01) ==
LOC: ER 10:22
DX: B34.9 Viral infection, unspecified (principal); Z20.822 Contact with and (suspected) exposure to COVID-19
CPT/HCPCS: 87804 ×2; 99281; U0003

== ENCOUNTER 2022-02-14 00:27 | Emergency (ER) | payer BC, SELFPAY ==
--- OUTSIDE RECORDS SUMMARY | 2022-02-14 00:31 | XMS REPORT | Continuity of Care Document ---
:1990 Author Organization [facility] t Address [address] [place] [address] Care Team Providers Name Role Phone PCP, PATIENT DOES NOT HAVE A Primary Care Physician Unavaila KAY Fontana Attending Clinician Unavailable Kay Zavala Attending Clinician Doctor Unassigned, [place] Attending Clinician Unavailable Lab, Adc Fam Pob I Attending Clinician Unavailable Zac John MD Attending Clinician ZAC JOHN Attending Clinician Unavailable KAY AREVALO Admitting Clinician Unavailable Problems Condition Condition Condition Status Onset Resolution Last Treating Co mments Source Name Details Category Date Date Treatment Clinician Date No known No known Disease Unive rs active active ity of problems problems [facility] Allergies, Adverse Reactions, Alerts Allergy Allergy Status Severity Reaction(s) Onset Inactive Treating Comm ents Source Name Type Date Date Clinician NO KNOWN Drug Active Univers ALLERGIE Class ity of S [facility] Social History Social Habit Start Date Stop Date Quantity Comments Source Exposure to 2022-01-03 2022-01-13 Not sure [facility] SARS-CoV-2 (event) 00:00:00 00:01:00 Medica l Branch Sex Assigned At [birth year] [facility] [place] 00:00:00 00:00:00 Medical Branch Smoking Status Start Date Stop Date Source Tobacco smoking consumption [facility] Medical unknown Branch Medications Ordered Filled Start Stop Current Ordering Indication Dosage Frequency Signature Comments Components Source Medication Medication Date Date Medication? Clinician (SIG) Name Name methocarbam 2021- No 1000mg 1,000 mg, Univers oL 01-13 Oral, ity of (ROBAXIN) 05:15: 05:10 ONCE, [place] tablet [place] :00 dose, On Medical 1,000 mg Sat Branch 01/13/22 at 0015, MICHAEL ketorolac 30mg 30 mg, Unive rs (TORADOL) 01-13 Slow IV ity of injection 05:15: 05:09 Push, [place] 30 mg 00 :00 ONCE, 1 Medical dose, On Branch 01/13/22 at 0015, MICHAEL ibuprofen Yes [id number] 800mg Take 1 Univers 800 mg 9-24 tablet by ity of tablet 00:00: mouth [place] 00 every 8 Medical (eight) Branch hours as needed for Pain (scale 4-6). methocarbam Yes [id number] 750mg Take 1 Univers oL 750 mg 9-24 tablet by ity o f tablet 00:00: mouth 4 [place] 00 (four) Medical times Branch daily as needed for Pain (scale 7-10). Vital Signs Vital Name Observation Time Observation Value Comments Source Systolic blood 2022-01-13 06:00:00 127 mm[Hg] [facility] Diastolic blood 2022-01-13 06:00:00 82 mm[facility]Hg[facility] Heart rate 2022-01-13 06:00:00 60 /min [facility] Respiratory rate 2022-01-13 06:00:00 17 /min [facility] Oxygen saturation in 2022-01-13 06:00:00 98 /min [facility] Arterial blood by [facility] Pulse oximetry Branch Body height 2022-01-13 05:04:00 182.9 cm [facility] Body weight 2022-01-13 05:04:00 83.915 kg [facility] BMI 2022-01-13 05:04:00 25.09 kg/m2 [facility] Procedures Procedure Date / Time Performed Performing Clinician Sourc e EKG-12 LEAD 2022-01-13 06:39:36 Kay Arevalo [facility] XR CHEST 2 VW 2022-01-13 05:31:19 Kay Arevalo [facility] TROPONIN I 2022-01-13 05:08:00 Kay Arevalo [facility] COMP. METABOLIC PANEL 2022-01-13 05:08:00 Kay Arevalo [facility] ([id number]) [facility] CBC WITH DIFF 2022-01-13 05:08:00 Kay Arevalo [facility] URINALYSIS 2022-01-13 05:08:00 Kay Arevalo [facility] N-TERMINAL PRO-BNP 2022-01-13 05:08:00 Kay Arevalo [facility] NOTICE OF PRIVACY 2022-01-13 04:54:29 Doctor Unassigned, No [facility] PRACTICES Name [facility] CONSENT/REFUSAL FOR 2022-01-13 04:52:45 Doctor Unassigned, No [facility] DIAGNOSIS AND Name [facility] TREATMENT Encounters Start End Encounter Admission Attending Care Care Encounter Source Date/Time Date/Time Type Type Clinicians Facility Department ID 2022-01-12 2022-01-13 [id number] Univers 23:56:00 01:42:00 [facility] 2022-01-12 2022-01-13 Emergency [facility] [id number] Univers 23:56:00 01:42:00 Kay GARCIA [id number] i ty of [place] 4[place]2.7.2.686 [place] [facility] [phone] [facility] 084 Branch 2022-01-12 2022-01-12 Orders Doctor EARL [id number] Univers 00:00:00 00:00:00 Only UnassignedALEXANDRE [id number] ity of [place] [facility] 4.2.7.2.686 Erich as [phone] [facility] 009 Branch 2020-12-01 2020-12-01 Laboratory Lab, Adc Fam Pob I [facility] 1.2. [id number] Univers 15:44:08 16:04:08 Only Zac John 350.1.13.10 ity of [place] 4.2.7.2.686 Erich as Professio [id number] De dical [facility] [address] 2020-12-01 2020-12-01 Outpatient Joel [facility] [id number] Univers 15:20:00 15:20:00 ZAC ity of [facility] 2020-12-01 2020-12-01 Letter Doctor EARL [id number] Univers 00:00:00 00:00:00 (Out) Unassigned, ALEXANDRE [id number] ity of [place] [facility] 4.2.7.2.686 Erich as [id number] [address] 2020-12-01 2020-12-01 Letter Doctor EARL [id number] Univers 00:00:00 00:00:00 (Out) Unassigned, ALEXANDRE 350.1.13.10 ity of [place] [facility] 4.2.7.2.686 Erich as [id number] [address] Results Test Description Test Time Test Comments Results Result Comments Source CBC WITH DIFF 2022-01-13 06:16:19 Test Item Value Reference Range Interpretation Comme nts WBC (test code = 6690-2) See_Comment [A utomated message] The system which ge nerated this result transmit jennifer reference range: 4.20 - 1 0.70 10*3/?L. The reference r susannah was not used to interpr et this result as normal/abnor mal. RBC (test code = 789-8) See_Comment [Au tomated message] The system which ge nerated this result transmit jennifer reference range: 4.26 - 5 .52 10*6/?L. The reference r susannah was not used to interpr et this result as normal/abnor mal. HGB (test code = 718-7) 14.1 g/dL 12.2-16.4 HCT (test code = 4544-3) 39.8 % 38.4-49.3 MCV (test code = 787-2) 85.8 fL 81.7-95.6 MCH (test code = 785-6) 30.4 pg 26.1-32.7 MCHC (test code = 786-4) 35.4 g/dL 31.2-35 H RDW-SD (test code = 41104-4) 39.5 fL 38.5-51.6 RDW-CV (test code = 788-0) 12.6 % 12.1-15.4 PLT (test code = 777-3) See_Comment L [Au tomated message] The system which ge nerated this result transmit jennifer reference range: 150 - 32 8 10*3/?L. The reference range was not used to interpret th is result as normal/abnormal . MPV (test code = 19909-6) 13.5 fL 9.8-13 H NRBC/100 WBC (test code = See_Comment [ Automated message] The 4200130731) system which ge nerated this result transmit jennifer reference range: 0.0 - 10 .0 /100 WBCs. The reference r susannah was not used to interpr et this result as normal/abnor mal. NRBC x10^3 (test code = See_Comment [Au tomated message] The 9461943255) system which [employer] nerated this result transmit jennifer reference range: 10*3/?L. The reference range was not u sed to interpret this result as normal/abnormal . GRAN MAT (NEUT) % (test code 46.1 % = 770-8) IMM GRAN % (test code = 0.20 % 2472191862) LYMPH % (test code = 736-9) 35.2 % MONO % (test code = 5905-5) 9.5 % EOS % (test code = 713-8) 8.3 % BASO % (test code = 706-2) 0.7 % GRAN MAT x10^3(ANC) (test 1.99 10*3/uL 1.99-6.95 code = 4644728087) IMM GRAN x10^3 (test code = 0-0.06 4814049145) LYMPH x10^3 (test code = 1.52 10*3/uL 1.09-3.23 731-0) MONO x10^3 (test code = 0.41 10*3/uL 0.36-1.02 742-7) EOS x10^3 (test code = 0.36 10*3/uL 0.06-0.53 711-2) BASO x10^3 (test code = 0.03 10*3/uL 0.01-0.09 704-7) PLT ESTIMATE (test code = Decreased Normal A 9317-9) GIANT PLATELETS (test code = Present See_Comment A [Automated message] The 5908-9) system which ge nerated this result transmit jennifer reference range: (none). The reference range was not u sed to interpret this result as normal/abnormal . Lab Interpretation (test Abnormal code = 12139-1) [facility] [id number] 05:48:55 Test Item Value Reference Interpretation Comments Range TROPONIN I (test See_Comment [Automated code = 9850554889) message] The system which generated this result transmitted reference range : <=0.034. The reference range was not used to interpret this result as normal/abnormal . EALR (test code = Reference (Normal) EARL) Range (defined by the 99th percentile reference limit): <= 0.034 ng/mL Note: Cardiac troponin begins to rise 3-4 hours after the onset of ischemia. Repeat in 4-6 hours if the sample was drawn within 3-4 hours of the onset of the symptom and found normal. Diagnosis of myocardial injury is made with acute changes in cTn concentrations with at least one serial sample above the 99th percentile upper reference limit (URL), taken together with the patient's clinical presentation. Biotin has been reported to cause a negative bias, interpret results relative to patient's use of biotin. Lab Interpretation Normal (test code = 04419-1) [facility] [id number] 05:45:35 Test Item Value Reference Range Interpretation Comments NT-proBNP (test code 17 pg/mL See_Comment [Autom ated = [id number]) message] The system which generated this result transmitted reference range : <=125. The reference range was not used to interpret this result as normal/abnormal . EARL (test code = EARL) Biotin has been reported to cause a negative bias, interpret results relative to patient's use of biotin. Lab Interpretation Normal (test code = 63294-4) [facility] ([id number])2022-01-13 05:37:16 Test Item Value Reference Range Interpretation Comments NA (test code = 136 mmol/L 135-145 8282745105) K (test code = 5.0 mmol/L 3.5-5 6079854015) CL (test code = 104 mmol/L 98-108 9755105057) CO2 TOTAL (test code = 23 mmol/L 23-31 6407463864) AGAP (test code = 2-16 5607982103) BUN (test code = 21 mg/dL 7-23 6294380781) GLUCOSE (test code = 94 mg/dL 70-110 7632950596) CREATININE (test code = 1.31 mg/dL 0.6-1.25 H 9892455044) TOTAL BILI (test code = 0.6 mg/dL 0.1-1.3 7541411926) CALCIUM (test code = 9.1 mg/dL 8.6-10.6 5694170040) T PROTEIN (test code = 7.1 g/dL 6.3-8.2 3849985963) ALBUMIN (test code = 4.5 g/dL 3.5-5 1355030325) ALK PHOS (test code = 45 U/L 34-122 1802003249) ALTv (test code = 26 U/L 5-50 1742-6) AST(SGOT) (test code = 38 U/L 13-40 2117654549) eGFR (test code = mL/min/1.73m2 5687573534) EARL (test code = EARL) Association of Glomerular Filtration Rate (GFR) and Staging of Kidney Disease* + --+ --+ ------+| GFR (mL/min/1.73 m2) ?| With Kidney Damage ?| ?Without Kidney Damage+ --------+ --------+ +| ?>90 ?| ?Stage one ?| ? Normal ?+ ---+ ---+ -------+| ?60-89 ?| ?Stage two ?| ? Decreased GFR ? + --+ --+ ------+| ?30-59 ?| ?Stage three ?| ? Stage three ? + --+ --+ ------+| ?15-29 ?| ?Stage four ? | ? Stage four ?+ ---+ ---+ -------+| ?<15 (or dialysis) ? ?| ?Stage five ? | ? Stage five ?+ ---+ ---+ -------+ *Each stage assumes the associated GFR level has been in effect for at least three months. ?Stages 1 to 5, with or without kidney disease, indicate chronic kidney disease. Notes: Determination of stages one and two (with eGFR >59mL/min/1.73 m2) requires estimation of kidney damage for at least three months as defined by structural or functional abnormalities of the kidney, manifested by either:Pathological abnormalities or Markers of kidney damage (including abnormalities in the composition of the blood or urine or abnormalities in imaging tests). Lab Interpretation Abnormal (test code = 41424-9) [facility]"
[2022-02-14] MEDS ORDERED: KETOROLAC 30 MG/ML INJ ONE (01:00)
[2022-02-14] MEDS ORDERED: NA CHLORIDE 0.9% 1,000 ML ONE (01:00)
[2022-02-14 01:29] LABS: Absolute Lymphocytes (CBC) 1.4 K/uL (0.7-4.9); Lymphocytes % 32.6 % (15.3-44.8); MCV 88.5 fL (80-100); MPV 11.7 fL (7.6-11.3); RBC Red Blood Cell Count 4.75 M/uL (4.33-5.43)
[2022-02-14 01:36] LABS: Protime INR 1.05
[2022-02-14 01:44] LABS: ALT/SGPT 33 U/L (12-78); AST/SGOT 21 U/L (15-37); Albumin 3.8 g/dL (3.4-5.0); Alkaline Phosphatase 58 U/L (45-117); BUN Blood Urea Nitrogen 18 mg/dL (7-18); Bicarbonate 28 mmol/L (21-32); Bilirubin Total 0.2 mg/dL (0.2-1.0); Glomerular Filtration Rate 82 ml/min (=/>90); Glucose Level 107 mg/dL (74-106); Protein, Total 7.1 g/dL (6.4-8.2); Sodium Level 137 mmol/L (136-145); Troponin High Sensitivity 7.8 pg/mL (<58.9)
[2022-02-14 01:47] LABS: Bilirubin Direct < 0.1 mg/dL (0-0.2)
[2022-02-14 01:49] LABS: Urine Blood Negative (Negative); Urine Glucose Negative (Negative); Urine Protein Negative (Negative); Urine Specific Gravity 1.015 (1.005-1.030)
[2022-02-14 02:04] LABS: Barbiturates NEGATIVE (NEGATIVE); Benzodiazepines NEGATIVE (NEGATIVE); Cocaine NEGATIVE (NEGATIVE); METHAMPHETAM NEGATIVE (NEGATIVE); Methadone NEGATIVE (NEGATIVE); Opiates NEGATIVE (NEGATIVE); Phencyclidine NEGATIVE (NEGATIVE); THC Cannibis NEGATIVE (NEGATIVE); Urine Mucus Slight /HPF (None Seen)
[2022-02-14 02:07] LABS: Blood Morphology Comment NOTED (NOT SEEN)
[2022-02-14 02:08] LABS: Platelet Estimate DECR; White Blood Cell Scan OK (OK)
--- NOTE | 2022-02-14 02:15 | EDPHYS ---
Physician Documentation [facility] Name: Ta Alarcon Age: 31 yrs Sex: Male : 1990 Arrival Date: 02/14/2022 Time: 00:30 Bed 5 Private MD: ED Physician Hussein Rangel HPI: 02/14 01:05 This 31 yrs old Black Male presents to ER via Ambulatory with complaints of Numbness Of cp Arm, Dizziness, Anxiety, Chest Pain. 01:05 The patient or guardian reports chest pain that is located primarily in the anterior cp chest wall, left. 01:05 Associated signs and symptoms: Pertinent positives: dizziness, pain and numbness of cp left upper arm, Pertinent negatives: abdominal pain, cough, diaphoresis, headache, lower extremity pain, lower extremity swelling, shortness of breath, syncope, vomiting. The chest pain is described as aching. Duration: The patient or guardian reports a single episode, that is still ongoing. Severity of pain: in the emergency department the pain is unchanged despite home interventions. Historical: - Allergies: 00:36 No Known Allergies; as6 - Home Meds: 00:36 None [Active]; as6 - PMHx: 00:36 Anxiety; as6 - PSHx: 00:36 None; as6 - Immunization history:: Client reports having NOT received the Covid vaccine. - Social history:: Smoking status: Patient denies any tobacco usage or history of. ROS: 01:05 Constitutional: Negative for body aches, chills, fever, poor PO intake. cp 01:05 Eyes: Negative for injury, pain, redness, and discharge. cp 01:05 Neck: Negative for pain with movement, pain at rest, stiffness. 01:05 Cardiovascular: Positive for chest pain, of the left side of chest, Negative for edema, palpitations. 01:05 Respiratory: Negative for cough, shortness of breath, wheezing. 01:05 Abdomen/GI: Negative for abdominal pain, nausea, vomiting, and diarrhea. 01:05 Back: Negative for pain at rest, pain with movement. 01:05 Neuro: Positive for dizziness, numbness, Negative for altered mental status, headache, cp syncope, weakness. 01:05 All other systems are negative. Exam: 01:05 ECG was reviewed by the Attending Physician. cp 01:10 Constitutional: The patient appears in no acute distress, alert, awake, cp non-diaphoretic, non-toxic, well developed, well nourished. 01:10 Head/Face: Normocephalic, atraumatic. cp 01:10 Eyes: Periorbital structures: appear normal, Conjunctiva: normal, no exudate, no injection, Sclera: no appreciated abnormality, Lids and lashes: appear normal, bilaterally. 01:10 ENT: External ear(s): are unremarkable, Nose: is normal, Posterior pharynx: Airway: no evidence of obstruction, patent. 01:10 Neck: External neck: tenderness, is not appreciated, ROM/movement: is normal, is supple, without pain, no range of motions limitations. 01:10 Chest/axilla: Inspection: normal, Palpation: is normal, no crepitus, no tenderness. 01:10 Cardiovascular: Rate: normal, Rhythm: regular, Pulses: Pulses are 2+ in right radial artery and left radial artery. Heart sounds: murmur, not appreciated. 01:10 Respiratory: the patient does not display signs of respiratory distress, Respirations: normal, no use of accessory muscles, no retractions, labored breathing, is not present, Breath sounds: are clear throughout, no decreased breath sounds, no stridor, no wheezing. 01:10 Abdomen/GI: Inspection: abdomen appears normal, Palpation: abdomen is soft and non-tender, in all quadrants. Vital Signs: 00:32 BP 132 / 70; Pulse 54; Resp 18 S; Temp 97.9(O); Pulse Ox 99% on R/A; Weight 86.18 kg as6 (R); Height 6 ft. 0 in. (182.88 cm) (R); Pain 5/10; 02:30 BP 138 / 68; Pulse 59; Resp 14; Pulse Ox 99% on R/A; ll3 00:32 Body Mass Index 25.77 (86.18 kg, 182.88 cm) as6 MDM: 00:37 Patient medically screened. abhilash 01:00 Differential diagnosis: abnormal EKG, acute myocardial infarction, acute pericarditis, cp pericarditis, pleurisy, pneumonia, pneumothorax, pulmonary embolus. 02:15 Data reviewed: vital signs, nurses notes, lab test result(s), EKG, radiologic studies, cp plain films. 02:15 Data interpreted: media monitor: rate is 58 beats/min, rhythm is normal sinus rhythm, cp Interpretation: normal rhythm, bradycardia, Pulse oximetry: on room air is 99 %. Interpretation: normal. Plan: O2 by NC applied. Test interpretation: by ED physician or midlevel provider: ECG, plain radiologic studies. Counseling: I had a detailed discussion with the patient and/or guardian regarding: the historical points, exam findings, and any diagnostic results supporting the discharge/admit diagnosis, lab results, radiology results, the need for outpatient follow up, a family practitioner, to return to the emergency department if symptoms worsen or persist or if there are any questions or concerns that arise at home. Response to treatment: the patient's symptoms have markedly improved after treatment, and as a result, I will discharge patient. Special discussion: Based on the patient's history, exam, and Dx evaluation, there is no indication for emergent intervention or inpatient Tx. It is understood by the patient/guardian that if the Sx's persist or worsen they need to return immediately for re-evaluation. 02/14 00:57 Order name: Basic Metabolic Panel; Complete Time: 02:08 cp 02/14 02:09 Interpretation: Normal except: GLUC 107; GFR 82. cp 02/14 00:57 Order name: CBC with Diff; Complete Time: 02:08 cp 02/14 02:09 Interpretation: Normal except: PLT 58; MPV 11.7; EOSINOPHIL % 10.5. cp 02/14 00:57 Order name: D-Dimer; Complete Time: 02:08 cp 02/14 02:09 Interpretation: Reviewed. cp 02/14 00:57 Order name: LFT's; Complete Time: 02:08 cp 02/14 02:09 Interpretation: Reviewed. cp 02/14 00:57 Order name: Magnesium; Complete Time: 02:08 cp 02/14 00:57 Order name: PT-INR; Complete Time: 02:08 cp 02/14 00:57 Order name: Troponin HS; Complete Time: 02:08 cp 02/14 02:09 Interpretation: Troponin HS 7.8; Reviewed. cp 02/14 00:57 Order name: XRAY Chest (1 view) cp 02/14 00:57 Order name: UDS; Complete Time: 02:08 cp 02/14 00:57 Order name: Urine Microscopic Only; Complete Time: 02:08 cp 02/14 01:38 Order name: CBC Smear Scan; Complete Time: 02:08 EDMS 02/14 01:49 Order name: Urine Dipstick-Ancillary; Complete Time: 02:08 EDMS 02/14 00:57 Order name: EKG; Complete Time: 00:58 cp 02/14 00:57 Order name: Cardiac monitoring; Complete Time: 01:22 cp 02/14 00:57 Order name: EKG - Nurse/Tech; Complete Time: 01:08 cp 02/14 00:57 Order name: IV Saline Lock; Complete Time: : cp 02/14 00:57 Order name: Labs collected and sent; Complete Time: : cp 02/14 00:57 Order name: O2 Per Protocol; Complete Time: : cp 02/14 00:57 Order name: O2 Sat Monitoring; Complete Time: : cp 02/14 00:57 Order name: Urine Dipstick-Ancillary (obtain specimen); Complete Time: 01:48 cp EC:05 Rate is 53 beats/min. Rhythm is regular. CA interval is normal. QRS interval is normal. cp QT interval is normal. T waves are Inverted in lead III. Interpreted by me. Reviewed by me. Administered Medications: 01:21 Drug: NS 0.9% 500 ml Route: IV; Rate: bolus; Site: right antecubital; ll3 02:29 Follow up: IV Status: Completed infusion; IV Intake: 500ml ll3 01:22 Drug: Ketorolac 15 mg Route: IVP; Site: right antecubital; ll3 02:30 Follow up: Response: No adverse reaction; Marked relief of symptoms ll3 01:53 Drug: NS 0.9% 500 ml Route: IV; Rate: 125 ml/hr; Site: right antecubital; ll3 02:29 Follow up: Response: No adverse reaction; IV Status: Order to discontinue infusion; IV ll3 Intake: 50ml Disposition Summary: 02/14/22 02:15 Discharge Ordered Location: Home cp Problem: new cp Symptoms: have improved cp Condition: Stable cp Diagnosis - Chest pain, unspecified cp Followup: cp - With: Private Physician - When: 2 - 3 days - Reason: Recheck today's complaints Discharge Instructions: - Discharge Summary Sheet cp - Nonspecific Chest Pain, Adult cp - Managing Stress, Adult cp - Managing Anxiety, Adult cp Forms: - Medication Reconciliation Form cp - Thank You Letter cp - Antibiotic Education cp - Prescription Opioid Use cp Prescriptions: - Diclofenac Sodium 75 mg Oral Tablet Sustained Release - take 1 tablet by ORAL route 2 times per day; 30 tablet; Refills: 0, Product cp Selection Permitted Signatures: Dispatcher [employer] Hussein Barajas MD MD cha Page, Corey, PA PA cp Josue Padilla RN RN as6 Tyesha Giraldo RN RN ll3
--- NOTE | 2022-02-14 02:15 | ER ---
Nurse's Notes [facility] Name: Ta Alarcon Age: 31 yrs Sex: Male : 1990 Arrival Date: 02/14/2022 Time: 00:30 Bed 5 Private MD: Diagnosis: Chest pain, unspecified Presentation: 02/14 00:32 Chief complaint: Patient states: "I've been having left arm/should pain/numbness for as6 about a week. I just want to see if I can get some testing done. I don't know if its just anxiety or heart problems". Coronavirus screen: At this time, the client does not indicate any symptoms associated with coronavirus-19. Ebola Screen: No symptoms or risks identified at this time. Initial Sepsis Screen: Does the patient meet any 2 criteria? No. Patient's initial sepsis screen is negative. Does the patient have a suspected source of infection? No. Patient's initial sepsis screen is negative. Risk Assessment: Do you want to hurt yourself or someone else? Patient reports no desire to harm self or others. Onset of symptoms was February 07, 2022. 00:32 Method Of Arrival: Ambulatory as6 00:32 Acuity: GABINO 3 as6 Historical: - Allergies: 00:36 No Known Allergies; as6 - Home Meds: 00:36 None [Active]; as6 - PMHx: 00:36 Anxiety; as6 - PSHx: 00:36 None; as6 - Immunization history:: Client reports having NOT received the Covid vaccine. - Social history:: Smoking status: Patient denies any tobacco usage or history of. Screenin:28 Abuse screen: Denies threats or abuse. Denies injuries from another. Nutritional ll3 screening: No deficits noted. Tuberculosis screening: No symptoms or risk factors identified. Fall Risk None identified. Assessment: 01:22 General: Appears in no apparent distress. uncomfortable, Behavior is calm, cooperative. ll3 Pain: Denies pain. Pain: Pain began. Neuro: Level of Consciousness is awake, alert, obeys commands, Oriented to person, place, time, situation. Neuro: Reports dizziness, numbness in left arm. Cardiovascular: Reports lightheadedness, Numbness to left arm that radiates to chest Patient's skin is warm and dry. Rhythm is sinus rhythm. Respiratory: Respiratory effort is even, unlabored, Respiratory pattern is regular, symmetrical. Derm: Skin is pink, warm \\T\\ dry. Musculoskeletal: Circulation, motion, and sensation intact. Vital Signs: 00:32 BP 132 / 70; Pulse 54; Resp 18 S; Temp 97.9(O); Pulse Ox 99% on R/A; Weight 86.18 kg as6 (R); Height 6 ft. 0 in. (182.88 cm) (R); Pain 5/10; 02:30 BP 138 / 68; Pulse 59; Resp 14; Pulse Ox 99% on R/A; ll3 00:32 Body Mass Index 25.77 (86.18 kg, 182.88 cm) as6 ED Course: 00:30 Patient arrived in ED. bp1 00:35 Hussein Hawkins PA is PHCP. cp 00:35 Hussein Rangel MD is Attending Physician. cp 00:36 Triage completed. as6 00:36 Arm band placed on. as6 01:07 EKG done, by ED staff, reviewed by Hussein VELAZCO. jw7 01:22 Initial lab(s) drawn, by wy, sent to lab. Inserted saline lock: 22 gauge in right ll3 antecubital area, using aseptic technique. Blood collected. 01:27 XRAY Chest (1 view) In Process Unspecified. EDMS 02:28 Patient has correct armband on for positive identification. Bed in low position. Call ll3 light in reach. Side rails up X 1. Adult w/ patient. Client placed on continuous cardiac and pulse oximetry monitoring. NIBP monitoring applied. 02:28 No provider procedures requiring assistance completed. IV discontinued, intact, ll3 bleeding controlled, No redness/swelling at site. Pressure dressing applied. Patient maintains SpO2 saturation greater than 95% on room air. Administered Medications: 01:21 Drug: NS 0.9% 500 ml Route: IV; Rate: bolus; Site: right antecubital; ll3 02:29 Follow up: IV Status: Completed infusion; IV Intake: 500ml ll3 01:22 Drug: Ketorolac 15 mg Route: IVP; Site: right antecubital; ll3 02:30 Follow up: Response: No adverse reaction; Marked relief of symptoms ll3 01:53 Drug: NS 0.9% 500 ml Route: IV; Rate: 125 ml/hr; Site: right antecubital; ll3 02:29 Follow up: Response: No adverse reaction; IV Status: Order to discontinue infusion; IV ll3 Intake: 50ml Medication: 02:29 VIS not applicable for this client. ll3 Intake: 02:29 IV: 500ml; Total: 500ml. ll3 02:29 IV: 50ml; Total: 550ml. ll3 Outcome: 02:15 Discharge ordered by MD. stephan 02:28 Discharged to home ambulatory, with family. ll3 02:28 Condition: stable 02:28 Discharge instructions given to patient, family, Instructed on discharge instructions, follow up and referral plans. medication usage, Demonstrated understanding of instructions, follow-up care, medications, Prescriptions given X 1. 02:30 Patient left the ED. ll3 Signatures: Dispatcher [employer] EDMS Hussein Hawkins PA PA cp [place]ia[place], Brittany bp1 Slawson, Ashby, RN RN as6 Tyesha Giraldo RN RN ll3 Yoon Gresham7
[2022-02-14 02:34] VITALS: BP 132/70; TEMP 97.9; O2SAT 99
--- NOTE | 2022-02-14 11:25 | RAD REPORT ---
EXAM DESCRIPTION: RAD - Chest Single View - 02/14/2022 1:25 am CLINICAL HISTORY: 31 years, Male, left side chest pain COMPARISON: None. FINDINGS: Single view of the chest was obtained portable. No prior films are available for compariso n. The cardiomediastinal silhouette demonstrate to be unremarkable. The heart is not enlarged. The th oracic aorta is unremarkable. The pulmonary vasculature is normal distribution. Costophrenic angles a re sharp. No areas of consolidation or masses are seen. External EKG leads within the [id number] limits diagnosis. The rest of the soft tissue and bony structures demonstrate to be unremarkable. IMPRESSION: NO ACUTE CARDIOPULMONARY DISEASE SEEN. Electronically signed by: Dario Pugh MD 02/14/2022 1:58 AM CDT Due to temporary technical issues with the PACS/Fluency reporting system, reports are being signed by the in house radiologists without review as a courtesy to insure prompt reporting. The interpreting radiologist is fully responsible for the content of the report.
--- NOTE | 2022-02-14 13:07 | EKG ---
Test Date: 2022-02-14 Test Time: 01:01:16 Facing End Trimmer: BESSY MEASUREMENT RESULTS: Intervals: Rate: 53 MD: 176 QRSD: 90 QT: 400 QTc: 375 [place]: P: 68 MD: 176 QRS: 213 T: 23 INTERPRETIVE STATEMENTS: Sinus bradycardia Right superior axis deviation ST elevation, consider anterior injury or acute infarct ACUTE UT / STEMI Abnormal ECG Compared to ECG 10/08/2018 01:42:17 ST (T wave) deviation now present Myocardial infarct finding now present T-wave abnormality no longer present Electronically Signed On 02-14-22 13:06:32 CDT by Oseas Hanna
== END 2022-02-14 02:30 | disposition home or self-care (01) ==
LOC: ER 00:27
DX: R07.89 Other chest pain (principal); R42 Dizziness and giddiness
CPT/HCPCS: 36415; 71045; 80048; 80076; 80307; 81003; 81015; 83735; 84484; 85025; 85379; 85610; 93005; 96361; 96374; 99285; J7030

== ENCOUNTER 2022-06-20 19:00 | Emergency (ER) | payer SELFPAY ==
--- OUTSIDE RECORDS SUMMARY | 2022-06-20 19:04 | XMS REPORT | Continuity of Care Document ---
:1990 Author Organization [facility] t Address [address] [place] [address] [place] [id number] Care Team Providers Name Role Phone PCP, PATIENT DOES NOT HAVE A Primary Care Physician Unavaila KYA Fontana Attending Clinician Unavailable Kay Zavala Attending Clinician Doctor Unassigned, [place] Attending Clinician Unavailable Lab, Adc Fam Pob I Attending Clinician Unavailable Zac John MD Attending Clinician ZAC JOHN Attending Clinician Unavailable KAY AREVALO Admitting Clinician Unavailable Problems Condition Condition Condition Status Onset Resolution Last Treating Co mments Source Name Details Category Date Date Treatment Clinician Date No known No known Disease Unive rs active active ity of problems problems [facility] Allergies, Adverse Reactions, Alerts Allergy Allergy Status Severity Reaction(s) Onset Inactive Treating Comm ents Source Name Type Date Date Clinician NO KNOWN Drug Active Univers ALLERGIE Class ity of S [facility] Social History Social Habit Start Date Stop Date Quantity Comments Source Exposure to 2022-01-03 2022-01-13 Not sure [facility] SARS-CoV-2 (event) 00:00:00 00:01:00 Medica l Branch Sex Assigned At [birth year] [facility] [place] 00:00:00 00:00:00 Medical Branch Smoking Status Start Date Stop Date Source Tobacco smoking consumption Univ [facility] Medical unknown Branch Medications Ordered Filled Start Stop Current Ordering Indication Dosage Frequency Signature Comments Components Source Medication Medication Date Date Medication? Clinician (SIG) Name Name methocarbam 1000mg 1,000 mg, Univers oL 01-13 Oral, ity of (ROBAXIN) 05:15: 05:10 ONCE, 1 [place] tablet 00 :00 dose, On Medical 1,000 mg Sat Branch 01/13/22 at 0015, MICHAEL ketorolac 30mg 30 mg, Unive rs (TORADOL) 01-13 Slow IV ity of injection 05:15: 05:09 Push, [place] 30 mg 00 :00 ONCE, 1 Medical dose, On Branch 01/13/22 at 0015, MICHAEL ibuprofen Yes [id number] 800mg Take 1 Univers 800 mg 9-24 tablet by ity of tablet 00:00: mouth [place] 00 every 8 Medical (eight) Branch hours as needed for Pain (scale 4-6). methocarbam Yes [id number] 750mg Take 1 Univers oL 750 mg 9-24 tablet by ity o f tablet 00:00: mouth 4 [place] 00 (four) Medical times Branch daily as needed for Pain (scale 7-10). Vital Signs Vital Name Observation Time Observation Value Comments Source Systolic blood 2022-01-13 06:00:00 127 mm[Hg] [facility] Diastolic blood 2022-01-13 06:00:00 82 mm[facility]Hg[facility] Heart rate 2022-01-13 06:00:00 60 /min [facility] Respiratory rate 2022-01-13 06:00:00 17 /min [facility] saturation in 2022-01-13 06:00:00 98 /min [facility] Arterial blood by [facility] Pulse oximetry Branch Body height 2022-01-13 05:04:00 182.9 cm [facility] Body weight 2022-01-13 05:04:00 83.915 kg [facility] BMI 2022-01-13 05:04:00 25.09 kg/m2 [facility] Procedures Procedure Date / Time Performed Performing Clinician Sourc e EKG-12 LEAD 2022-01-13 06:39:36 Kay Arevalo [facility] XR CHEST 2 VW 2022-01-13 05:31:19 Kay Arevalo [facility] TROPONIN I 2022-01-13 05:08:00 Kay Arevalo [facility] COMP. METABOLIC PANEL 2022-01-13 05:08:[address] [facility] ([id number]) [facility] CBC WITH DIFF 2022-01-13 05:08:00 Kay Arevalo [facility] URINALYSIS 2022-01-13 05:08:00 Kay Arevalo [facility] N-TERMINAL PRO-BNP 2022-01-13 05:08:00 Kay Arevalo [facility] NOTICE OF PRIVACY 2022-01-13 04:54:29 Doctor Unassigned, No Univ [facility] PRACTICES Name [facility] CONSENT/REFUSAL FOR 2022-01-13 04:52:45 Doctor Unassigned, [facility] TREATMENT Encounters Start End Encounter Admission Attending Care Care Encounter Source Date/Time Date/Time Type Type Clinicians Facility Department ID 2022-01-12 2022-01-[address] E[facility] [id number] Univers 23:56:00 01:42:00 KAY thakur [facility] 2022-01-12 2022-01-13 Emergency [facility] [id number] Univers 23:56:00 01:42:00 Kay GARCIA [id number] i ty [facility] [id number] [place] [facility] [id number] [facility] 084 Branch 2022-01-12 2022-01-12 Orders Doctor EARL [id number] Univers 00:00:00 00:00:00 Only Unassigned, ALEXANDRE [id number] ity of [place] [facility] [id number] Erich as [phone] [facility] 009 Branch 2020-12-01 2020-12-01 Laboratory Lab, Adc Fam Pob I [facility] 1.2. [id number] [id number] Univers 15:44:08 16:04:08 Only Zac John [place] [id number] ity of [place] [id number] Erich as Professio [id number] Ny dical [facility] [address] 2020-12-01 2020-12-01 Outpatient R DORA, [facility] [id number] Univers 15:20:00 15:20:00 ZAC ity of [facility] 2020-12-01 2020-12-01 Letter Doctor EARL [id number] Univers 00:00:00 00:00:00 (Out) Unassigned, ALEXANDRE [id number] ity of [place] [facility] [id number] Erich as [phone] [address] 2020-12-01 2020-12-01 Letter Doctor EARL [id number] Univers 00:00:00 00:00:00 (Out) Unassigned, ALEXANDRE [id number] ity of [place] [facility] [id number] Erich as [id number] [address] Results Test Description Test Time Test [...] g/dL 31.2-35 H RDW-SD (test code = 82296-9) 39.5 fL 38.5-51.6 RDW-CV (test code = 788-0) 12.6 % 12.1-15.4 PLT (test code = 777-3) See_Comment L [Au tomated message] The system which ge nerated this result transmit jennifer reference range: 150 - 32 8 10*3/?L. The reference range was not used to interpret th is result as normal/abnormal . MPV (test code = 23916-0) 13.5 fL 9.8-13 H NRBC/100 WBC (test code = See_Comment [ Automated message] The [id number]) system which ge nerated this result transmit jennifer reference range: 0.0 - 10 .0 /100 WBCs. The reference r susannah was not used to interpr et this result as normal/abnor mal. NRBC x10^3 (test code = See_Comment [Au tomated message] The [id number]) system which ge nerated this result transmit jennifer reference range: 10*3/?L. The reference range was not u sed to interpret this result as normal/abnormal . GRAN MAT (NEUT) % (test code 46.1 % = 770-8) IMM GRAN % (test code = 0.20 % 9395551629) LYMPH % (test code = 736-9) 35.2 % MONO % (test code = 5905-5) 9.5 % EOS % (test code = 713-8) 8.3 % BASO % (test code = 706-2) 0.7 % GRAN MAT x10^3(ANC) (test 1.99 10*3/uL 1.99-6.95 code = 0208260824) IMM GRAN x10^3 (test code = 0-0.06 7647578148) LYMPH x10^3 (test code = 1.52 10*3/uL [...] . Lab Interpretation (test Abnormal code = 02544-0) [id number] 05:48:55 Test Item Value Reference Interpretation Comments Range TROPONIN I (test See_Comment [Automated code = 8604290373) message] The system which generated this result transmitted reference range : <=0.034. The reference range was not used to interpret this result as normal/abnormal . EARL (test code = Reference (Normal) EARL) Range [...] biotin. Lab Interpretation Normal (test code = 31185-3) [facility] [id number] 05:45:35 Test Item Value Reference Range Interpretation Comments NT-proBNP (test code 17 pg/mL See_Comment [Autom ated = 4027196890) message] The system which generated this result transmitted reference range : <=125. The reference range was not used to interpret this result as normal/abnormal . EARL (test code = EARL) Biotin has been reported to cause a negative bias, interpret results relative to patient's use of biotin. Lab Interpretation Normal (test code = 68969-6) [facility]. METABOLIC PANEL (63935)2022-01-13 05:37:16 Test Item Value Reference Range Interpretation Comments NA (test code = 136 mmol/L 135-145 1358634812) K (test code = 5.0 mmol/L 3.5-5 1353928696) CL (test code = 104 mmol/L 98-108 3151229572) CO2 TOTAL (test code = 23 mmol/L 23-31 5398933390) AGAP (test code = 2-16 8761671173) BUN (test code = 21 mg/dL 7-23 8146651573) GLUCOSE (test code = 94 mg/dL 70-110 7314371337) CREATININE (test code = 1.31 mg/dL 0.6-1.25 H 2163458035) TOTAL BILI (test code = 0.6 mg/dL 0.1-1.8 4154592444) CALCIUM (test code = 9.1 mg/dL 8.6-10.6 4413643087) T PROTEIN (test code = 7.1 g/dL 6.3-8.2 5333018411) ALBUMIN (test code = 4.5 g/dL 3.5-5 2751557502) ALK PHOS (test code = 45 U/L 34-122 1311500953) ALTv (test code = 26 U/L 5-50 2-6) AST(SGOT) (test code = 38 U/L 13-40 7573150811) eGFR (test code = mL/min/1.73m2 0883141917) EARL (test code = EARL) Association of [...] tests). Lab Interpretation Abnormal (test code = 48158-7) [facility]"
[2022-06-20] MEDS ORDERED: KETOROLAC 30 MG/ML INJ ONE (19:33)
[2022-06-20 19:44] LABS: Absolute Lymphocytes (CBC) 1.3 K/uL (0.7-4.9); Hematocrit 41.2 % (39.6-49.0); Lymphocytes % 24.3 % (15.3-44.8); MCV 86.5 fL (80-100); MPV 11.1 fL (7.6-11.3); RBC Red Blood Cell Count 4.76 M/uL (4.33-5.43)
[2022-06-20 20:04] LABS: Bilirubin Total 0.2 mg/dL (0.2-1.0); Potassium 3.9 mmol/L (3.5-5.1); Protein, Total 7.5 g/dL (6.4-8.2); Troponin High Sensitivity 5.9 pg/mL (<58.9)
--- NOTE | 2022-06-20 20:07 | RAD REPORT ---
EXAM DESCRIPTION: RAD - Chest Single View - 06/20/2022 8:00 pm CLINICAL HISTORY: CHEST PAIN Chest pain. COMPARISON: Chest Single View dated 02/14/2022; Chest Single View dated 11/06/2019; Chest Single View dated 10/08/2018; CHEST PA AND LAT 2 VIEW dated 08/11/2009 FINDINGS: Portable technique limits examination quality. The lungs are grossly clear. The heart is normal in size. No displaced fractures. IMPRESSION: No acute intrathoracic process suspected.
[2022-06-20 20:21] LABS: Platelet Estimate DECR; White Blood Cell Scan OK (OK)
[2022-06-20 20:22] LABS: Blood Morphology Comment NOT SEEN (NOT SEEN); Platelets, Giant PRESENT
[2022-06-20] MEDS ORDERED: CYCLOBENZAPRINE 10 MG TAB ONE (20:33)
[2022-06-20] MEDS ORDERED: NA CHLORIDE 0.9% 2,000 ML ONE (21:19)
--- NOTE | 2022-06-20 23:46 | ER ---
Nurse's Notes [facility] Name: Ta Alarcon Age: 31 yrs Sex: Male : 1990 Arrival Date: 06/20/2022 Time: 19:04 Bed 8 Private MD: Diagnosis: Chest wall pain;Elevated CPK Presentation: 06/20 19:10 Chief complaint: Patient states: left arm, arm pit and chest pain sharp and numbness to jh5 my elbow. I been to the hospital for this before 6 months ago and they said i tore a muscle it's just different. Coronavirus screen: Vaccine status:. Coronavirus screen: Vaccine status: Patient reports receiving the 2nd dose of the covid vaccine. Client denies travel out of the [place] in the last 14 days. Ebola Screen: Patient negative for fever greater than or equal to 101.5 degrees Fahrenheit, and additional compatible Ebola Virus Disease symptoms Patient denies exposure to infectious person. Patient denies travel to an Ebola-affected area in the 21 days before illness onset. Initial Sepsis Screen: Does the patient meet any 2 criteria? No. Patient's initial sepsis screen is negative. Does the patient have a suspected source of infection? No. Patient's initial sepsis screen is negative. Risk Assessment: Do you want to hurt yourself or someone else? Patient reports no desire to harm self or others. 19:10 Method Of Arrival: Ambulatory jh5 19:10 Acuity: GABINO 3 jh5 20:29 Onset of symptoms is unknown. as6 Triage Assessment: 19:12 General: Appears in no apparent distress. uncomfortable, slender, well groomed, well jh5 developed, Behavior is calm, cooperative, appropriate for age. Pain: Complains of pain in left arm. Musculoskeletal: Circulation, motion, and sensation intact. Capillary refill < 3 seconds, Range of motion: intact in all extremities. Historical: - Allergies: 19:12 No Known Allergies; jh5 - PMHx: 19:12 Anxiety; jh5 - Immunization history:: Adult Immunizations up to date. - Social history:: Smoking status: Patient denies any tobacco usage or history of. - Family history:: not pertinent, pertinent for. Screenin:13 Abuse screen: Denies threats or abuse. Denies injuries from another. Nutritional ha1 screening: No deficits noted. Tuberculosis screening: No symptoms or risk factors identified. 20:30 [facility] ED Fall Risk Assessment (Adult) Score/Fall Risk Level 0 - 2 = Low Risk. as6 Assessment: 19:13 General: Appears comfortable, Behavior is calm, cooperative. Pain: Complains of pain in ha1 chest and left arm Pain does not radiate. Pain currently is 6 out of 10 on a pain scale. Quality of pain is described as pressure. Neuro: Level of Consciousness is awake, alert, obeys commands, Oriented to person, place, time, situation. Cardiovascular: Heart tones S1 S2 present Patient's skin is warm and dry. Respiratory: Airway is patent Respiratory effort is even, unlabored, Respiratory pattern is regular, symmetrical, Breath sounds are clear bilaterally. GI: No signs and/or symptoms were reported involving the gastrointestinal system. Abdomen is flat, non-distended. : No signs and/or symptoms were reported regarding the genitourinary system. EENT: No signs and/or symptoms were reported regarding the EENT system. Derm: Skin is pink, warm \\T\\ dry. Musculoskeletal: Circulation, motion, and sensation intact. Range of motion: intact in all extremities. 20:10 Reassessment: Patient and/or family updated on plan of care and expected duration. Pain ha1 level reassessed. Patient is alert, oriented x 3, equal unlabored respirations, skin warm/dry/pink. Patient states symptoms have not improved. 20:30 General: "my pain isn't much better" . as6 21:25 Reassessment: Patient and/or family updated on plan of care and expected duration. Pain ha1 level reassessed. Patient is alert, oriented x 3, equal unlabored respirations, skin warm/dry/pink. 22:25 Reassessment: Patient and/or family updated on plan of care and expected duration. Pain ha1 level reassessed. Patient is alert, oriented x 3, equal unlabored respirations, skin warm/dry/pink. Patient states feeling better. Patient states symptoms have improved. 23:18 Reassessment: Patient and/or family updated on plan of care and expected duration. Pain ha1 level reassessed. Patient is alert, oriented x 3, equal unlabored respirations, skin warm/dry/pink. awaiting on lab results. Vital Signs: 19:10 BP 133 / 89; Pulse 72; Resp 16; Temp 97.3; Pulse Ox 97% ; Weight 91.63 kg; Height 6 ft. [facility] 1 in. (185.42 cm); Pain 7/10; 19:13 BP 152 / 74; Pulse 70; Resp 18 S; Pulse Ox 98% on R/A; ha1 20:10 BP 146 / 79; Pulse 60; Resp 17 S; Pulse Ox 98% on R/A; ha1 21:10 BP 138 / 80; Pulse 57; Resp 16 S; Pulse Ox 99% ; ha1 22:25 BP 148 / 87; Pulse 57; Resp 16 S; Pulse Ox 99% on R/A; ha1 23:18 BP 149 / 89; Pulse 55; Resp 16 S; Pulse Ox 99% on R/A; ha1 19:10 Body Mass Index 26.65 (91.63 kg, 185.42 cm) [facility] ED Course: 19:04 Patient arrived in ED. mr 19:05 Ta Cerda MD is Attending Physician. rt 19:12 Triage completed. [facility] 19:12 Arm band placed on right wrist. [facility] 19:13 Patient has correct armband on for positive identification. Placed in gown. Bed in low ha1 position. Call light in reach. Side rails up X 1. 19:20 Terri Connelly, GALLO is Primary Nurse. 1 19:25 No provider procedures requiring assistance completed. Inserted saline lock: 20 gauge ha1 in right antecubital area, using aseptic technique. Blood collected. 23:54 IV discontinued, intact, bleeding controlled, No redness/swelling at site. Pressure ha1 dressing applied. Administered Medications: 19:30 Drug: Ketorolac 30 mg Route: IM; Site: right ventrogluteal; ha1 20:00 Follow up: Response: No adverse reaction; Pain is unchanged, physician notified ha1 20:29 Drug: Flexeril (cyclobenzaprine) 10 mg Route: PO; as6 21:00 Follow up: Response: No adverse reaction; Pain is decreased ha1 21:24 Drug: NS 0.9% 2000 ml Route: IV; Rate: 1 bolus; Site: right antecubital; ha1 22:50 Follow up: Response: No adverse reaction; IV Status: Completed infusion; IV Intake: ha1 2000ml Medication: 20:29 VIS not applicable for this client. as6 Intake: 22:50 IV: 2000ml; Total: 2000ml. ha1 Outcome: 23:45 Discharge ordered by MD. rt 23:54 Discharged to home ambulatory. ha1 23:54 Condition: stable 23:54 Discharge instructions given to patient, Instructed on discharge instructions, follow up and referral plans. Demonstrated understanding of instructions, follow-up care. 23:54 Patient left the ED. ha1 Signatures: Berto Nasima MartinezDhara RN RN jh5 Josue Padilla RN RN as6 Terri Connelly RN RN ha1 Ta Cerda MD MD rt Corrections: (The following items were deleted from the chart) 22:37 21:25 Reassessment: Patient and/or family updated on plan of care and expected ha1 duration. Pain level reassessed. Patient is alert, oriented x 3, equal unlabored respirations, skin warm/dry/pink. Patient states feeling better. Patient states symptoms have improved. ha1
--- NOTE | 2022-06-20 23:46 | EDPHYS ---
Physician Documentation [facility] Name: Ta Alarcon Age: 31 yrs Sex: Male : 1990 Arrival Date: 06/20/2022 Time: 19:04 Bed 8 Private MD: ED Physician Ta Cerda HPI: 06/20 19:33 This 31 yrs old Black Male presents to ER via Ambulatory with complaints of under arm rt pain radiates to elbow, Back Pain. 19:33 Patient presents to the ED with a left-sided chest wall pain. The patient reports that rt he was told that he had a muscle tear. He reports the pain to the left side of the chest for the past several weeks. He had a mild shortness of breath. He states that he believes that the pain is muscular, however, he wants to make sure that is not his heart. He denies other acute complaints at this time. Symptoms are mild in severity, no other aggravating alleviating factors.. Historical: - Allergies: 19:12 No Known Allergies; jh5 - PMHx: 19:12 Anxiety; [facility] - Immunization history:: Adult Immunizations up to date. - Social history:: Smoking status: Patient denies any tobacco usage or history of. - Family history:: not pertinent, pertinent for. ROS: 19:33 Constitutional: Negative for fever, chills, and weight loss, Abdomen/GI: Negative for rt abdominal pain, nausea, vomiting, diarrhea, and constipation, Skin: Negative for injury, rash, and discoloration, Neuro: Negative for headache, weakness, numbness, tingling, and seizure, Psych: Negative for depression, anxiety, suicide ideation, homicidal ideation, and hallucinations. 19:33 Cardiovascular: Positive for chest pain, Negative for edema. 19:33 Respiratory: Positive for shortness of breath, Negative for cough. 19:33 MS/extremity: Positive for Left arm pain, negative for swelling. Exam: 19:33 Constitutional: This is a well developed, well nourished patient who is awake, alert, rt and in no acute distress. Head/Face: Normocephalic, atraumatic. Cardiovascular: Regular rate and rhythm with a normal S1 and S2. No gallops, murmurs, or rubs. Normal PMI, no JVD. No pulse deficits. Respiratory: Lungs have equal breath sounds bilaterally, clear to auscultation and percussion. No rales, rhonchi or wheezes noted. No increased work of breathing, no retractions or nasal flaring. Abdomen/GI: Soft, non-tender, with normal bowel sounds. No distension or tympany. No guarding or rebound. No evidence of tenderness throughout. MS/ Extremity: Pulses equal, no cyanosis. Neurovascular intact. Full, normal range of motion. Neuro: Awake and alert, GCS 15, oriented to person, place, time, and situation. Cranial nerves II-XII grossly intact. Motor strength 5/5 in all extremities. Sensory grossly intact. Cerebellar exam normal. Normal gait. Psych: Awake, alert, with orientation to person, place and time. Behavior, mood, and affect are within normal limits. 19:33 Chest/axilla: Palpation over left anterior chest wall reproduces chest pain. 21:29 ECG was reviewed by the Attending Physician. rt Vital Signs: 19:10 BP 133 / 89; Pulse 72; Resp 16; Temp 97.3; Pulse Ox 97% ; Weight 91.63 kg; Height 6 ft. jh5 1 in. (185.42 cm); Pain 7/10; 19:13 BP 152 / 74; Pulse 70; Resp 18 S; Pulse Ox 98% on R/A; ha1 20:10 BP 146 / 79; Pulse 60; Resp 17 S; Pulse Ox 98% on R/A; ha1 21:10 BP 138 / 80; Pulse 57; Resp 16 S; Pulse Ox 99% ; ha1 22:25 BP 148 / 87; Pulse 57; Resp 16 S; Pulse Ox 99% on R/A; ha1 23:18 BP 149 / 89; Pulse 55; Resp 16 S; Pulse Ox 99% on R/A; ha1 19:10 Body Mass Index 26.65 (91.63 kg, 185.42 cm) 5 MDM: 19:16 Patient medically screened. rt 23:46 Differential diagnosis: Mild, chest wall pain, rhabdo, pneumonia, pneumothorax, rt pulmonary embolism. Data reviewed: vital signs, nurses notes, lab test result(s), EKG, radiologic studies. Consideration of Admission/Observation Escalation of care including admission/observation considered. Independent interpretation of the following test(s) in the Emergency Department X-Ray: My interpretation is No consolidation on chest x-ray. Test considered but Not performed: CT: Low suspicion for PE, CT angiogram not indicated. Scoring Tools HEART Score: History: Slightly Suspicious (0) ECG: Normal (0) Age: < or = 45 years (0) Risk Factors: 1 or 2 Risk factors (1) Troponin: < or = 1 x Normal limit (0) Total Score = 1. Counseling: I had a detailed discussion with the patient and/or guardian regarding: the historical points, exam findings, and any diagnostic results supporting the discharge/admit diagnosis, lab results, radiology results, the need for outpatient follow up, to return to the emergency department if symptoms worsen or persist or if there are any questions or concerns that arise at home. ED course: With elevated CPK, downtrending with 2 L of IV fluids, creatinine slightly above baseline,, any criteria for ERINN, does not require admission at this time. Patient stable for outpatient care, precautions discussed. Given chronicity of symptoms, 1 set of enzymes is sufficient to rule out acute coronary syndrome.. 06/20 19:16 Order name: CBC with Diff; Complete Time: 20:25 rt 06/20 19:16 Order name: CMP; Complete Time: 20:09 rt 06/20 19:16 Order name: Troponin High Sensitivity; Complete Time: 20:09 rt 06/20 19:16 Order name: Chest Single View XRAY rt 06/20 20:07 Order name: RAD; Complete Time: 20:09 EDMS 06/20 20:10 Order name: CPK rt 06/20 20:22 Order name: CBC Smear Scan; Complete Time: 20:25 EDMS 06/20 20:27 Order name: EKG; Complete Time: 20:28 rt 06/20 20:27 Order name: EKG - Nurse/Tech; Complete Time: 20:36 rt 06/20 20:53 Order name: Creatine Phosphokinase; Complete Time: 21:07 EDMS 06/20 21:13 Order name: CPK: Redraw after fluids rt EC:29 Rate is 57 beats/min. Rhythm is regular, Sinus bradycardia with No ectopy, Early rt repolarization is present. Left axis deviation noted. FL interval is normal. QRS interval is normal. QT interval is normal. Administered Medications: 19:30 Drug: Ketorolac 30 mg Route: IM; Site: right ventrogluteal; ha1 20:00 Follow up: Response: No adverse reaction; Pain is unchanged, physician notified ha1 20:29 Drug: Flexeril (cyclobenzaprine) 10 mg Route: PO; as6 21:00 Follow up: Response: No adverse reaction; Pain is decreased 21:24 Drug: NS 0.9% 2000 ml Route: IV; Rate: 1 bolus; Site: right antecubital; ha1 22:50 Follow up: Response: No adverse reaction; IV Status: Completed infusion; IV Intake: ha1 2000ml Disposition Summary: 06/20/22 23:45 Discharge Ordered Location: Home rt Problem: new rt Symptoms: have improved rt Condition: Stable rt Diagnosis - Chest wall pain rt - Elevated CPK rt Followup: rt - With: Private Physician - When: 2 - 3 days - Reason: Discharge Instructions: - Discharge Summary Sheet rt - Chest Wall Pain rt - Rhabdomyolysis rt Forms: - Medication Reconciliation Form rt - Thank You Letter rt - Antibiotic Education rt - Prescription Opioid Use rt Signatures: Dispatcher [employer] Dhara Núñez RN RN jh5 Josue Padilla RN RN as6 Terri Connelly RN RN ha1 Ta Cerda MD MD rt
[2022-06-21 00:12] VITALS: TEMP 97.3
[2022-06-21 00:32] VITALS: O2SAT 99
[2022-06-21 00:34] VITALS: BP 149/89
--- NOTE | 2022-06-21 17:27 | EKG ---
Test Date: 2022-06-20 Test Time: 20:35:37 Drainlayer: JANINE MEASUREMENT RESULTS: Intervals: Rate: 55 WI: 160 QRSD: 90 QT: 402 QTc: 384 [place]: P: 62 WI: 160 QRS: -39 T: 1 INTERPRETIVE STATEMENTS: Sinus bradycardia Left axis deviation RSR' or QR pattern in V1 suggests right ventricular conduction delay ST elevation, consider early repolarization, pericarditis, or injury Nonspecific T wave abnormality Abnormal ECG Compared to ECG 02/14/2022 01:01:16 Left-axis deviation now present RSR' in V1 or V2 now present T-wave abnormality now present Right superior axis no longer present Myocardial infarct finding no longer present Myocardial infarct finding no longer present ST (T wave) deviation still present Electronically Signed On 06-21-22 17:25:48 RECEIVING WORKER by Oseas Hanna
== END 2022-06-20 23:54 | disposition home or self-care (01) ==
LOC: ER 19:00
DX: R07.89 Other chest pain (principal); R79.89 Other specified abnormal findings of blood chemistry
CPT/HCPCS: 36415; 71045; 80053; 82550; 84484; 85025; 93005; J7030

== ENCOUNTER → 2023-06-14 | Emergency (ER) | payer SELFPAY ==
--- OUTSIDE RECORDS SUMMARY | 2023-06-14 21:29 | XMS REPORT | Continuity of Care Document ---
Author Name Unknown Address [address] [facility] [address] [place] [address] [facility] thconnect Address [address] [facility] [address] [place] [address] Care Team Providers Care Med[employer] English Literature Professor Name Role Phone PCP, PATIENT DOES NOT HAVE A Primary Care Physic dorothy Unavailable KAY AREVALO Attending Clinician Unavailable Kay Zavala Attending Clinician [phone] Doctor Unassigned, [place] Attending Clinician U navailable Lab, Adc Fam Pob I Attending Clinician Unavailab Zac Gregorio MD Attending Clinician [phone] ZAC JOHN Attending Clinician Unavailable KAY AREVALO Admitting Clinician Unavailable Problems Condition Name Condition Details Condition Category Status Onset Date Resolution Date Last Treatment Date Treating Clinician Comments Source No known active problems No known active problems Disease [facility] Allergies, Adverse Reactions, Alerts Allergy Name Allergy Type Status Severity Reaction(s) Onset Date Inactive Date Treating Clinician Comments Source NO KNOWN ALLERGIE S Drug Class Active [facility] Social History Social Habit Start Date Stop Date Quantity Comments Source Exposure to SARS-CoV-2 (event) 2022-01-03 00:00:00 2022-01-13 00:01:00 Not sure [facility] Sex Assigned At 1990 00:00:00 1990 00:00:00 [facility] Smoking Status Start Date Stop Date Source Tobacco smoking consumption unknown [facility] Medications Ordered Medication Name Filled Medication Name Start Date Stop Date Current Medication? Ordering Clinician Indication Dosage Frequency Signature (SIG) Comments Components Source methocarbam oL (ROBAXIN) tablet 1,000 mg 01-13 05:15: 00 01-13 05:10 :00 No 1000mg 1,000 mg, Oral, ONCE, 1 dose, On 01/13/22 at 0015, MICHAEL [facility] ketorolac (TORADOL) injection 30 mg 01-13 05:15: 00 01-13 05:09 :00 No 30mg 30 mg, Slow IV Push, ONCE, 1 dose, On 01/13/22 at 0015, MICHAEL [facility] ibuprofen 800 mg tablet 01-13 00:00: 00 Yes [id number] 800mg Take 1 tablet by mouth every 8 (eight) hours as needed for Pain (scale 4-6). [facility] methocarbam oL 750 mg tablet 01-13 00:00: 00 Yes [id number] 750mg Take 1 tablet by mouth 4 (four) times daily as needed for Pain (scale 7-10). [facility] Vital Signs Vital Name Observation Time Observation Value Comments S ource Systolic blood pressure 2022-01-13 06:00:00 127 mm[Hg] [facility] Diastolic blood pressure 2022-01-13 06:00:00 82 mm[Hg] [facility] Heart rate 2022-01-13 06:00:00 60 /min [facility] Respiratory rate 2022-01-13 06:00:00 17 /min [facility] Oxygen saturation in Arterial blood by Pulse oximetry 2022-01-13 06:00:00 98 /min [facility] Body height 2022-01-13 05:04:00 182.9 cm [facility] Body weight 2022-01-13 05:04:00 83.915 kg [facility] BMI 2022-01-13 05:04:00 25.09 kg/m2 [facility] Procedures Procedure Date / Time Performed Performing Clinicia n Source EKG-12 LEAD 2022-01-13 06:39:36 Kay Arevalo [facility] XR CHEST 2 VW 2022-01-13 05:31:19 Kay Arevalo [facility] TROPONIN I 2022-01-13 05:08:00 Kay Arevalo [facility] COMP. METABOLIC PANEL ([id number]) 2022-01-13 05:08:00 Kay Arevalo [facility] CBC WITH DIFF 2022-01-13 05:08:00 Kay Arevalo [facility] URINALYSIS 2022-01-13 05:08:00 Kay Arevalo [facility] N-TERMINAL PRO-BNP 2022-01-13 05:08:00 Agustina Arevalo [facility] NOTICE OF PRIVACY PRACTICES 2022-01-13 04:54:29 Doctor Unassigned, [place] [facility] CONSENT/REFUSAL FOR DIAGNOSIS AND TREATMENT 2022-01-13 04:52:45 Doctor Unassigned, [place] [facility] Encounters Start Date/Time End Date/Time Encounter Type Admission Type Attending [facility] Facility Care Department Encounter ID Source 2022-01-12 23:56:00 2022-01-13 01:42:00 Emergency X [facility] ERT [id number] [facility] 2022-01-12 23:56:00 2022-01-13 01:42:00 Emergency Kay Arevalo [facility] ..114 [id number] [facility] 2022-01-12 00:00:00 2022-01-12 00:00:00 Orders Only Doctor Unassigned, [place] [facility] ..114 [id number] [id number] [facility] 2020-12-01 15:44:08 2020-12-01 16:04:08 Laboratory Only Lab, Adc Fam Zac [facility] [address] 1.114 [id number] [id number] [id number] [facility] 2020-12-01 15:20:00 2020-12-01 15:20:00 Outpatient ZAC [facility] [id number] [facility] 2020-12-01 00:00:00 2020-12-01 00:00:00 Letter (Out) Doctor Unassigned, [place] [facility] [id number] [facility] 2020-12-01 00:00:00 2020-12-01 00:00:00 Letter (Out) Doctor Unassigned, [place] [facility] [id number] [facility] Results Test Description Test Time Test Comments Results Result Co mments Source [facility] [id number] 05:48:55* Test Item Value Reference Range Interpretation Comments TROPONIN I (test code = 3483129970) See_Comment [Automated message] The system which generated this result transmitted reference range: <=0.034. The reference range was not used to interpret this result as normal/abnormal. EARL (test code = EARL) Reference (Normal) Range (defined by the 99th percentile reference [...] to patient's use of biotin. Lab Interpretation (test code = 01216-6) Normal [facility] HGE-[id number] 05:45:35* Test Item Value Reference Range Interpretation Comme nts NT-proBNP (test code = 3654453782) 17 pg/mL See_Comment [Automated message] The system which generated this result transmitted reference range: <=125. The reference range was not used to interpret this result as normal/abnormal. EARL (test code = EARL) Biotin has been reported to cause a negative bias, interpret results relative to patient's use of biotin. Lab Interpretation (test code = 35244-2) Normal [facility]. METABOLIC PANEL ([id number])2022-01-13 05:37:16* Test Item Value Reference Range Interpretation Comme nts NA (test code = 6509275243) 136 mmol/L 135-145 K (test code = 5345868548) 5.0 mmol/L 3.5-5 CL (test code = 4850304217) 104 mmol/L 98-108 CO2 TOTAL (test code = 2183992263) 23 mmol/L 23-31 AGAP (test code = 3752100606) 2-16 BUN (test code = 7232547769) 21 mg/dL 7-23 GLUCOSE (test code = 8995875473) 94 mg/dL 70-110 CREATININE (test code = 7346886873) 1.31 mg/dL 0.6-1.25 H TOTAL BILI (test code = 1271170905) 0.6 mg/dL 0.1-1.1 CALCIUM (test code = 0336271521) 9.1 mg/dL 8.6-10.6 T PROTEIN (test code = 5219333630) 7.1 g/dL 6.3-8.2 ALBUMIN (test code = 2421313378) 4.5 g/dL 3.5-5 ALK PHOS (test code = 5802273366) 45 U/L 34-122 ALTv (test code = 1742-6) 26 U/L 5-50 AST(SGOT) (test code = 8388761878) 38 U/L 13-40 eGFR (test code = 5215019480) mL/min/1.73m2 EARL (test code = EARL) Association of [...] or abnormalities in imaging tests). Lab Interpretation (test code = 40854-6) Abnormal [facility]"
--- NOTE | 2023-06-14 22:24 | ER ---
Nurse's Notes [facility] Name: Ta Alarcon Age: 32 yrs Sex: Male : 1990 Arrival Date: 06/14/2023 Time: 21:18 Bed IW10 Private MD: Dewey Diaz W Diagnosis: ED Course: 06/14 21:19 Patient arrived in ED. rg4 21:19 Dewey Diaz MD is Private Physician. rg4 21:42 Hussein Hawkins PA is PHCP. cp 21:42 Hussein Rangel MD is Attending Physician. cp 22:22 Patient's name was called from ER [facility]. No response. Unable to locate patient. Will as6 disposition as left without being seen by a provider. Administered Medications: No medications were administered Outcome: 22:24 Patient left the ED. as6 Signatures: Hussein Hawkins PA PA cp Garcia, Rubi rg4 Josue Padilla, GALLO RN as6
== END ==
LOC: ER 21:18
DX: Z02.9 Encounter for administrative examinations, unspecified (principal)